=== PATIENT | female | born 1990 | race Caucasian/White ===

== ENCOUNTER 2016-09-14 15:10 | Emergency (ER) | payer OTHER, SELFPAY | END 2016-09-14 17:20 | disposition left against medical advice (07) | LOC: M ED 15:10 | DX: N93.9 Abnormal uterine and vaginal bleeding, unspecified (principal); Z53.29 Procedure and treatment not carried out because of patient's decision for other reasons ==

== ENCOUNTER 2016-10-27 18:25 | Emergency (ER) | payer MEDICAID, SELFPAY ==
[~2016-10-27] VITALS: Ht 165.1 cm; Wt 131.1 kg
[2016-10-27] MEDS ORDERED: NORCOTAB PO (20:33)
[2016-10-27 20:54] VITALS: BP 162/100
--- NOTE | 2016-10-28 08:06 | REP ---
Clinical: Trauma . Technique: Internal rotation, external rotation, and Y view left shoulder . Findings: No acute fracture or dislocation. The acromioclavicular and glenohumeral joints are intact. No periarticular calcifications or degenerative changes are appreciated. Sub acromial space is normal. Surrounding soft tissues are unremarkable. Impression: Normal left shoulder radiographs. Signed by Nate Hoskins MD 10/28/2016 07:57 A
== END 2016-10-27 20:58 | disposition home or self-care (01) ==
LOC: M ED 19:36
DX: S43.52XA Sprain of left acromioclavicular joint, initial encounter (principal); S40.012A Contusion of left shoulder, initial encounter; X58.XXXA Exposure to other specified factors, initial encounter; Y92.018 Other place in single-family (private) house as the place of occurrence of the external cause; Y93.89 Activity, other specified; Y99.8 Other external cause status

== ENCOUNTER 2016-12-09 13:44 | Emergency (ER) | payer MEDICAID, SELFPAY ==
[~2016-12-09] VITALS: Ht 165.1 cm; Wt 157.4 kg
[~2016-12-09 13:44] MED LIST: NORCOTAB PO
[2016-12-09 14:18] VITALS: BP 150/80
[2016-12-09] MEDS ORDERED: MACR100C3 PO (14:35)
== END 2016-12-09 14:42 | disposition home or self-care (01) ==
LOC: M ED 14:42
DX: O23.41 Unspecified infection of urinary tract in pregnancy, first trimester (principal); Z3A.00 Weeks of gestation of pregnancy not specified

== ENCOUNTER → 2016-12-15 | Outpatient (REF) | payer MEDICAID ==
[~2016-12-15] MED LIST changes: +MACR100C3 PO
[2016-12-15 14:40] LABS: MEAN CORPUSCULAR HEMOGLOBIN 29.8 pg (27.0-33.0); MEAN CORPUSCULAR HGB CONC 31.9 g/dl (32.0-36.5); MEAN CORPUSCULAR VOLUME 93.3 fl (80.0-96.0); RED CELL DISTRIBUTION WIDTH 13.8 % (11.5-14.5); WHITE BLOOD COUNT 8.8 K/mm3 (4.0-10.0)
[2016-12-15 15:08] LABS: HCG, SERUM QUANTITATIVE 7804 MIU/ML
[2016-12-16 10:41] LABS: HBsAg Prenatal NEGATIVE (NEGATIVE)
== END ==
LOC: M LAB REF 12:58
PROVIDERS: ATTEND Advanced Practice Midwife
DX: O36.80X0 Pregnancy with inconclusive fetal viability, not applicable or unspecified (principal); Z36 Encounter for antenatal screening of mother; Z3A.00 Weeks of gestation of pregnancy not specified; E66.01 Morbid (severe) obesity due to excess calories; O99.210 Obesity complicating pregnancy, unspecified trimester

== ENCOUNTER 2016-12-27 14:10 | Emergency (ER) | payer MEDICAID ==
[~2016-12-27] VITALS: Ht 162.6 cm; Wt 71.7 kg
[2016-12-27] MEDS ORDERED: ONDANSETRON 4 MG ORAL DISINTEGRATING TAB (S0181) PO ONE (14:45)
--- NOTE | 2016-12-27 15:49 | REP ---
Clinical: Dating and viability. Technique: Transabdominal first trimester obstetrical ultrasound with color Doppler evaluation. Findings: Single live early intrauterine is appreciated. Gestational sac with yolk sac and pole identified. [place]-rump length of 17 mm corresponds to 8 weeks 1 day gestational age with estimated date of delivery 08/07/2017. heart rate equals 160 beats per minute. No gross abnormalities are identified. Impression: Single live early intrauterine at 8 weeks 1 day gestational age. Complete anatomical assessment should be performed and 19-20 weeks. Signed by Nate Hoskins MD 12/27/2016 03:39 P
[2016-12-27] MEDS ORDERED: [UNRECOGNIZED DRUG - OTHER] PO (16:38)
[2016-12-27] MEDS ORDERED: REGL10TA6 PO (16:38)
[2016-12-27 16:47] VITALS: BP 123/60
== END 2016-12-27 16:49 | disposition home or self-care (01) ==
LOC: M ED 14:51
DX: R10.2 Pelvic and perineal pain (principal); O99.341 Other mental disorders complicating pregnancy, first trimester; F32.9 Major depressive disorder, single episode, unspecified; F41.9 Anxiety disorder, unspecified; Z3A.08 8 weeks gestation of pregnancy

== ENCOUNTER 2017-01-17 22:23 | Emergency (ER) | payer MEDICAID ==
[~2017-01-17] VITALS: Ht 160 cm; Wt 160.0 kg
[~2017-01-17 22:23] MED LIST changes: -MACR100C3 PO; +MACR100C43 PO; +REGL10TA6 PO; +[UNRECOGNIZED DRUG - OTHER] PO
[2017-01-18 00:41] VITALS: BP 130/75
--- NOTE | 2017-01-18 09:53 | REP ---
RIGHT ANKLE: Two views of the right ankle are performed. I see no acute fracture or dislocation. Ankle mortise is anatomic. There is soft tissue swelling. IMPRESSION: Soft tissue swelling without evidence of acute fracture or dislocation. Signed by Jeb Ann MD 01/18/2017 08:17 P
== END 2017-01-18 00:42 | disposition home or self-care (01) ==
LOC: M ED 23:35
DX: S93.401A Sprain of unspecified ligament of right ankle, initial encounter (principal); X50.9XXA Other and unspecified overexertion or strenuous movements or postures, initial encounter; Y92.019 Unspecified place in single-family (private) house as the place of occurrence of the external cause; Y93.89 Activity, other specified; Y99.9 Unspecified external cause status; F32.9 Major depressive disorder, single episode, unspecified

== ENCOUNTER 2017-01-22 09:59 | Emergency (ER) | payer MEDICAID ==
[~2017-01-22] VITALS: Ht 170.2 cm; Wt 157.1 kg
[2017-01-22] MEDS ORDERED: PYRI25TA3 PO (11:24)
[2017-01-22] MEDS ORDERED: ZOFR4TAB3 PO (11:24)
[2017-01-22] MEDS ORDERED: CVS25TAB16 PO (11:24)
[2017-01-22] MEDS ORDERED: ONDANSETRON 4 MG ORAL DISINTEGRATING TAB (S0181) PO ONE (11:30)
[2017-01-22 11:33] VITALS: BP 153/86
== END 2017-01-22 12:00 | disposition home or self-care (01) ==
LOC: M ED 11:56
DX: O21.9 Vomiting of pregnancy, unspecified (principal); Z3A.11 11 weeks gestation of pregnancy; O99.211 Obesity complicating pregnancy, first trimester

== ENCOUNTER → 2017-02-12 | Outpatient (REF) | payer MEDICAID ==
[~2017-02-12] MED LIST changes: +CVS25TAB16 PO; +PYRI25TA3 PO; +ZOFR4TAB3 PO
== END ==
LOC: M LAB REF 12:49
PROVIDERS: ATTEND Advanced Practice Midwife
DX: Z34.82 Encounter for supervision of other normal pregnancy, second trimester (principal)

== ENCOUNTER → 2017-04-19 | Outpatient (CLI) | payer MEDICAID ==
--- NOTE | 2017-04-19 13:18 | REP ---
Obstetric sonography: History: Supervision of for anatomy. Findings: Scanning through the gravid uterus demonstrates a viable single intrauterine gestation in a breech lie. motion is observed and heart rate is recorded at 153 beats per minute. An anterior grade 0 placenta is seen without evidence of previa or abruption. Amniotic fluid is subjectively normal. Closed cervical length is 5.4 cm. No extrauterine abnormalities observed. There has been appropriate interval growth. Exam quality is inhibited by patient body habitus and position. No anomaly is seen. face and profile, four-chamber heart with outflow tract views, and diaphragm and lower extremities are less than optimally seen due to lie and maternal body habitus. The following additional anatomic structures are identified and felt to be sonographically unremarkable: cranium, choroid plexus, cavum, cerebellum posterior fossa, lungs, left-sided stomach, abdominal wall cord insertion, three-vessel umbilical cord, kidneys and bladder, spine, upper extremities. Biometry chart: BPD 5.5 cm = 22 weeks 6 days Head circumference 21.9 cm = 24 weeks 0 days Abdominal circumference 19.5 cm = 24 weeks 2 days Femur length 4.4 cm = 24 weeks 3 days Humeral length 4.3 cm = 25 weeks 5 days Cerebellar diameter 2.6 cm = 23 weeks 5 days HC/AC ratio normal 1.12. Cephalic index normal 0.68 (0.70-0.86). Estimated weight 678 grams, 1 pound 7 ounces, 44th percentile for 24 weeks 2 days. Impression: Viable single intrauterine gestation at 23 weeks 6 days by today's composite sonographic criteria. Expected gestational age estimate based on prior sonography is 24 weeks 2 days KHADAR by prior sonography August 07, 2017. anatomic survey is less than complete as above. Signed by Rubens Flores MD 04/19/2017 04:29 P
== END ==
LOC: M SMT 08:12
PROVIDERS: ATTEND Advanced Practice Midwife
DX: Z36 Encounter for antenatal screening of mother (principal); Z3A.23 23 weeks gestation of pregnancy

== ENCOUNTER → 2017-05-07 | Outpatient (CLI) | payer MEDICAID ==
[2017-05-07 13:46] LABS: MEAN CORPUSCULAR HEMOGLOBIN 28.5 pg (27.0-33.0); MEAN CORPUSCULAR VOLUME 89.1 fl (80.0-96.0); RED CELL DISTRIBUTION WIDTH 14.7 % (11.5-14.5); WHITE BLOOD COUNT 13.4 10^3/uL (4.0-10.0)
== END ==
LOC: M SMT 11:05
PROVIDERS: ATTEND Obstetrics & Gynecology
DX: Z34.82 Encounter for supervision of other normal pregnancy, second trimester (principal)

== ENCOUNTER → 2017-05-17 | Outpatient (CLI) | payer MEDICAID ==
--- NOTE | 2017-05-17 16:16 | REP ---
FOLLOWUP OB ULTRASOUND: 05/17/2017. Comparison: Anatomy ultrasound 04/19/2017. Clinical history: Incomplete anatomy screening for multiple anatomic structures that could not be well defined on the previous exam in April. Based on her initial study, she would be 28 weeks 2 days with EDC 08/07/2017. This also was the LMP dating. Today's exam again shows a single intrauterine gestation currently in a breech position. Cervix is 5.1 cm long and closed. There is an anterior grade 0 placenta without previa or abruption. Visually the amniotic fluid volume is normal with an index of 13.6 and the normal range 9.3 - 22.9. Largest fluid pocket is 7.4 cm. Mid cord umbilical artery Doppler shows an S/D ratio of 2.39 with forward diastolic flow and Doppler resistive index of 0.60. biometry. BPD 6.9 cm = 27 weeks 5 day HC 26.6 cm = 29 weeks AC 24.5 cm = 28 weeks 5 days FL 5.5 cm = 29 weeks 1 day HL 4.7 cm = 27 weeks 5 days These give average ultrasound age of 28 weeks 3 days with EDC 08/06/2017. Estimated weight 1290 or 54th percentile based on initial ultrasound and LMP. This is normal interval growth. The anatomy screen today shows cranial vault, choroid plexus, lateral ventricles, cavum septum pellucidum, cerebellum and cisterna magna all intact. lungs are seen, however, the face and profile view, four-chamber heart view and the ventricular outflow tracts are still not well visualized due to the breech position and lie. Diaphragm and lower extremities are seen on today's study as is the left sided stomach bubble, three-vessel cord, cord insertion, transverse and longitudinal views of the spine, upper and lower extremities and the kidneys and bladder. Impression: 1. Single intrauterine gestation in breech position with normal interval growth, closed 5.1 cm long cervix, visually normal amniotic fluid volume and cord Doppler. 2. Anterior grade 0 placenta without previa or abruption. 3. Size and dates show normal interval growth. 4. Anatomy screen shows a heart rate 157, but the face and profile views as well as a four-chamber heart and ventricular outflow tracts are still not optimally seen due to the breech position. Study otherwise unremarkable. Signed by Shola Gore MD 05/17/2017 05:25 P
== END ==
LOC: M LRY 13:28
PROVIDERS: ATTEND Obstetrics & Gynecology
DX: Z36.2 Encounter for other antenatal screening follow-up (principal); Z3A.29 29 weeks gestation of pregnancy

== ENCOUNTER → 2017-05-24 | Outpatient (REF) | payer MEDICAID | LOC: M LAB REF 17:10 | PROVIDERS: ATTEND Advanced Practice Midwife | DX: Z34.83 Encounter for supervision of other normal pregnancy, third trimester (principal) ==

== ENCOUNTER → 2017-06-17 | Outpatient (REF) | payer OTHER | LOC: M SFHCLERA 14:26 | PROVIDERS: ATTEND Nurse Practitioner Family | DX: J02.9 Acute pharyngitis, unspecified (principal) ==

== ENCOUNTER 2017-06-26 22:16 | Outpatient (CLI) | payer MEDICAID, OTHER | END 2017-06-26 23:30 | disposition home or self-care (01) | LOC: M LDO 22:16 | PROVIDERS: ATTEND Advanced Practice Midwife | DX: O36.8130 Decreased fetal movements, third trimester, not applicable or unspecified (principal); O26.893 Other specified pregnancy related conditions, third trimester; O99.213 Obesity complicating pregnancy, third trimester; O99.343 Other mental disorders complicating pregnancy, third trimester; Z86.718 Personal history of other venous thrombosis and embolism; Z3A.34 34 weeks gestation of pregnancy; Z79.01 Long term (current) use of anticoagulants; Z79.899 Other long term (current) drug therapy ==

== ENCOUNTER → 2017-06-28 | Outpatient (CLI) | payer MEDICAID, OTHER | LOC: M LAB 08:25 | PROVIDERS: ATTEND Obstetrics & Gynecology | DX: Z34.82 Encounter for supervision of other normal pregnancy, second trimester (principal) ==

== ENCOUNTER → 2017-07-14 | Outpatient (REF) | payer MEDICAID, OTHER | LOC: M LAB REF 16:52 | PROVIDERS: ATTEND Obstetrics & Gynecology | DX: Z34.83 Encounter for supervision of other normal pregnancy, third trimester (principal) ==

== ENCOUNTER → 2017-07-16 | Outpatient (CLI) | payer MEDICAID | LOC: M RAD 14:04 | PROVIDERS: ATTEND Obstetrics & Gynecology | DX: Z36.2 Encounter for other antenatal screening follow-up (principal) ==

== ENCOUNTER 2017-07-27 06:35 | Inpatient (IN) | payer MEDICAID ==
[2017-07-27 08:47] LABS: MEAN CORPUSCULAR HEMOGLOBIN 27.3 pg (27.0-33.0); MEAN CORPUSCULAR HGB CONC 31.7 g/dl (32.0-36.5); PLATELET COUNT, AUTOMATED 358 10^3/uL (150-450); RED CELL DISTRIBUTION WIDTH 15.2 % (11.5-14.5); WHITE BLOOD COUNT 11.5 10^3/uL (4.0-10.0)
[2017-07-27 09:21] LABS: ALT/SGPT 7 U/L (12-78); AST/SGOT 8 U/L (7-37); BILIRUBIN,TOTAL 0.2 MG/DL (0.2-1.0); CREATININE FOR GFR 0.57 MG/DL (0.55-1.02); GLOMERULAR FILTRATION RATE > 60.0 (>60); URIC ACID 4.2 MG/DL (2.6-6.0)
[2017-07-27] MEDS: miSOPROStol 50 MCG 1/2 TAB (S0191) SL ×2 (09:31→14:12)
[2017-07-27] MEDS: PENICILLIN G POTASSIUM IV 5 MU in D5W MINI-BAG PLUS 100 ML IV (10:07)
[2017-07-27] MEDS: PENICILLIN G POTASSIUM IV 2.5 MU in APPROPRIATE DILUENT 1 EA IV ×2 (14:12→19:14)
[2017-07-27] MEDS: miSOPROStol 50 MCG 1/2 TAB (S0191) PO (23:38)
[2017-07-28] MEDS: PENICILLIN G POTASSIUM IV 2.5 MU in APPROPRIATE DILUENT 1 EA IV ×5 (00:41→16:42)
[2017-07-28] MEDS: PROMETHAZINE INJ 25 MG/ML VIAL (J2550) IV ×2 (02:02→09:15)
[2017-07-28] MEDS: BUTORPHANOL 2 MG/ML INJ (J0595) IV ×2 (02:05→09:15)
[2017-07-28] MEDS: miSOPROStol 50 MCG 1/2 TAB (S0191) PO ×2 (04:12→08:27)
[2017-07-28] MEDS: LR 1,000 ML IV ×3 (08:44→15:22)
[2017-07-28] MEDS: ONDANSETRON 4MG/2ML VIAL (J2405) IV (08:55)
[2017-07-28] MEDS ORDERED: LR 1,000 ML IV (11:32)
[2017-07-28] MEDS: OXYTOCIN DRIP 30 UNITS in APPROPRIATE DILUENT 1 EA IV ×2 (12:50→19:55)
[2017-07-28] MEDS ORDERED: FENTANYL 2MCG/ML ROPIVACAINE 0.2% IN 0.9% NACL 200ML IVBAG As Ordered (13:38)
[2017-07-28] MEDS: LACTATED RINGER'S 1000 ML IV (15:22)
[2017-07-28] MEDS ORDERED: EPIDURAL/PCA KEYS XX (15:30)
[2017-07-28] MEDS ORDERED: diphenhydrAMINE INJ 50MG/ML VIAL (J1200) IV (15:30)
[2017-07-28] MEDS: FENTANYL/ROPIVACAINE/NACL BAG 200 ML EPIDURAL (15:30)
[2017-07-28] MEDS ORDERED: REFRIGERATOR IV KEYS XX (15:30)
[2017-07-28] MEDS ORDERED: EPIDURAL COMMENT XX (15:30)
[2017-07-28] MEDS ORDERED: ePHEDrine SULFATE 25 MG/5 ML(5MG/ML) SYRINGE IV (15:30)
[2017-07-28] MEDS ORDERED: ONDANSETRON 4MG/2ML VIAL (J2405) IV (15:30)
[2017-07-28] MEDS ORDERED: NALOXONE INJ 0.4 MG/1 ML VIAL (J2310) IV (15:30)
[2017-07-28] MEDS: LIDOCAINE 1% MDV INJ 50 ML VIAL INFIL (19:30)
[2017-07-28 19:35] LABS: CORD GAS ABE A -9.5; CORD GAS HCO3 A 21.1 MEQ/L; CORD GAS O2 SAT A 50.1 %; CORD GAS PCO2 A 65.9 mmHg; CORD GAS PH A 7.124 UNITS; CORD GAS PO2 A 24.8 mmHg; CORD GAS TCO2 A 23.2 MEQ/L
[2017-07-28 19:36] LABS: CORD GAS ABE V -6.2; CORD GAS HCO3 V 20.2 MEQ/L; CORD GAS O2 SAT V 69.1 %; CORD GAS PCO2 V 43.1 mmHg; CORD GAS PH V 7.289 UNITS; CORD GAS PO2 V 30.5 mmHg; CORD GAS SBC V 18.8 MEQ/L; CORD GAS TCO2 V 21.5 MEQ/L
[2017-07-28] MEDS ORDERED: RHOGAM 300 MCG (1500 IU) INJ (J2790) IM (20:00)
[2017-07-28] MEDS ORDERED: DIBUCAINE 1% OINTMENT 30GM TOP (20:00)
[2017-07-28] MEDS ORDERED: MEASLES,MUMPS,RUBELLA VACCINE INJ (MMR-II) (90707) SC (20:00)
[2017-07-28] MEDS ORDERED: ANUSOL HC CREAM 30GM TOP (20:00)
[2017-07-28] MEDS: IBUPROFEN 800 MG TAB PO (22:31)
[2017-07-29] MEDS: ACETAMINOPHEN 500 MG TAB PO ×2 (06:20→18:49)
[2017-07-29] MEDS: PRENATAL VITAMINS CHEWABLE TABLET PO (08:48)
[2017-07-29] MEDS: IBUPROFEN 800 MG TAB PO (12:18)
[2017-07-29] MEDS: DOCUSATE SODIUM 100 MG CAP PO (20:24)
[2017-07-30] MEDS: IBUPROFEN 800 MG TAB PO (04:07)
[2017-07-30] MEDS: PRENATAL VITAMINS CHEWABLE TABLET PO (10:07)
== END 2017-07-30 11:28 | disposition home or self-care (01) | DRG 560 ==
LOC: M LDI 06:35 → M OBS 07-28 21:26
PROC: 3E0DXGC Introduction of Other Therapeutic Substance into Mouth and Pharynx, External Approach (ICD-10-PCS; principal; 2017-07-27)
PROC: 10907ZC Drainage of Amniotic Fluid, Therapeutic from Products of Conception, Via Natural or Artificial Opening (ICD-10-PCS; 2017-07-28)
PROC: 10E0XZZ Delivery of Products of Conception, External Approach (ICD-10-PCS; 2017-07-28)
PROC: 0HQ9XZZ Repair Perineum Skin, External Approach (ICD-10-PCS; 2017-07-28)
DX: O13.4 Gestational [pregnancy-induced] hypertension without significant proteinuria, complicating childbirth (principal); Z68.43 Body mass index [BMI] 50.0-59.9, adult; O24.429 Gestational diabetes mellitus in childbirth, unspecified control; O99.344 Other mental disorders complicating childbirth; E66.9 Obesity, unspecified; Z37.0 Single live birth; Z3A.38 38 weeks gestation of pregnancy; Z91.14 Patient's other noncompliance with medication regimen; F31.9 Bipolar disorder, unspecified; Z79.899 Other long term (current) drug therapy; O99.824 Streptococcus B carrier state complicating childbirth; O70.0 First degree perineal laceration during delivery; O99.214 Obesity complicating childbirth

== ENCOUNTER → 2017-09-10 | Outpatient (REF) | payer MEDICAID ==
[2017-09-10 18:35] LABS: HEMATOCRIT 39.3 % (36.0-47.0); HEMOGLOBIN 12.1 g/dl (12.0-16.0); MEAN CORPUSCULAR HEMOGLOBIN 26.8 pg (27.0-33.0); MEAN CORPUSCULAR HGB CONC 30.8 g/dl (32.0-36.5); MEAN CORPUSCULAR VOLUME 87.1 fl (80.0-96.0); PLATELET COUNT, AUTOMATED 360 10^3/uL (150-450); RED BLOOD COUNT 4.51 10^6/uL (4.00-5.40); RED CELL DISTRIBUTION WIDTH 15.7 % (11.5-14.5)
== END ==
LOC: M SFHCPLAZ 16:00
DX: J02.9 Acute pharyngitis, unspecified (principal)

== ENCOUNTER → 2017-09-10 | Outpatient (REF) | payer MEDICAID | LOC: M SFHCPLAZ 17:28 | DX: J02.9 Acute pharyngitis, unspecified (principal) ==

== ENCOUNTER 2017-09-12 23:05 | Emergency (ER) | payer MEDICAID, SELFPAY ==
[2017-09-13] MEDS: dexameTHASONE 20 MG/5 ML VIAL (J1100) IV ×2
[2017-09-13] MEDS: IPRATROPIUM 0.5MG/ALBUTEROL 2.5MG INH SOL UD 3ML (DUONEB)(J7620) NEB ×6 (00:35→00:53)
[2017-09-13 00:58] LABS: BASO # 0.1 10^3/uL (0.0-0.2); BASO % 0.5 % (0.0-1.0); EOS # 0.3 10^3/uL (0.0-0.50); EOS % 1.2 % (0.0-3.0); HEMATOCRIT 39.3 % (36.0-47.0); HEMOGLOBIN 12.1 g/dl (12.0-16.0); IMMATURE GRANULOCYTE % 0.9 % (0-3.0); LYMPH # 3.7 10^3/uL (1.5-6.5); LYMPH % 17.3 % (24.0-44.0); MEAN CORPUSCULAR HEMOGLOBIN 26.7 pg (27.0-33.0); MEAN CORPUSCULAR HGB CONC 30.8 g/dl (32.0-36.5); MEAN CORPUSCULAR VOLUME 86.6 fl (80.0-96.0); MONO # 1.2 10^3/uL (0.0-0.8); MONO % 5.8 % (0.0-5.0); NEUTROPHILS # 15.7 10^3/uL (1.8-7.7); NEUTROPHILS % 74.3 % (36.0-66.0); PLATELET COUNT, AUTOMATED 388 10^3/uL (150-450); RED BLOOD COUNT 4.54 10^6/uL (4.00-5.40); RED CELL DISTRIBUTION WIDTH 15.9 % (11.5-14.5); WHITE BLOOD COUNT 21.2 10^3/uL (4.0-10.0)
[2017-09-13 01:31] LABS: INFLUENZA A AMPLIFICATION NEGATIVE (NEGATIVE); INFLUENZA B AMPLIFICATION NEGATIVE (NEGATIVE); RSV AMPLIFICATION NEGATIVE (NEGATIVE)
[2017-09-13 01:37] LABS: ANION GAP 6 MEQ/L (8-16); BLOOD UREA NITROGEN 17 MG/DL (7-18); CALCIUM LEVEL 8.4 MG/DL (8.5-10.1); CARBON DIOXIDE LEVEL 27 MEQ/L (21-32); CHLORIDE LEVEL 109 MEQ/L (98-107); CREATININE FOR GFR 0.78 MG/DL (0.55-1.30); GLOMERULAR FILTRATION RATE > 60.0 (>60); GLUCOSE, FASTING 107 MG/DL (70-100); POTASSIUM SERUM 4.6 MEQ/L (3.5-5.1); SODIUM LEVEL 142 MEQ/L (136-145)
[2017-09-13] MEDS ORDERED: ISOVUE-370 76% 100ML VIAL (Q9967) As Ordered ×2 (01:49)
== END 2017-09-13 03:39 | disposition home or self-care (01) ==
LOC: M ED 23:05
DX: J06.9 Acute upper respiratory infection, unspecified (principal); B34.9 Viral infection, unspecified; J45.909 Unspecified asthma, uncomplicated; F31.9 Bipolar disorder, unspecified
CPT/HCPCS: J1100

== ENCOUNTER → 2017-09-15 | Outpatient (REF) | payer MEDICAID | LOC: M SFHCLERA 11:35 | DX: J02.9 Acute pharyngitis, unspecified (principal) ==

== ENCOUNTER 2017-10-08 15:37 | Emergency (ER) | payer MEDICAID ==
[2017-10-08] MEDS: ONDANSETRON 4 MG ORAL DISINTEGRATING TAB (S0181) PO (16:59)
[2017-10-08] MEDS: ACETAMINOPHEN 325 MG TAB PO (17:04)
[2017-10-08 17:39] LABS: INFLUENZA A AMPLIFICATION NEGATIVE (NEGATIVE); INFLUENZA B AMPLIFICATION NEGATIVE (NEGATIVE)
== END 2017-10-08 18:04 | disposition home or self-care (01) ==
LOC: M ED 15:37
DX: A08.4 Viral intestinal infection, unspecified (principal); E11.9 Type 2 diabetes mellitus without complications; J45.909 Unspecified asthma, uncomplicated; F41.9 Anxiety disorder, unspecified; F32.9 Major depressive disorder, single episode, unspecified; E28.2 Polycystic ovarian syndrome
CPT/HCPCS: 87502

== ENCOUNTER → 2017-12-30 | Outpatient (REF) | payer MEDICAID | LOC: M LAB REF 15:42 | DX: Z12.4 Encounter for screening for malignant neoplasm of cervix (principal) ==

== ENCOUNTER → 2018-01-26 | Outpatient (REF) | payer OTHER | LOC: M SFHCLERA 16:38 | DX: J35.1 Hypertrophy of tonsils (principal) ==

== ENCOUNTER 2018-01-27 13:03 | Emergency (ER) | payer MEDICAID, OTHER, SELFPAY ==
[2018-01-27] MEDS: MAGIC MOUTHWASH SUSPENSION BTL SSP (14:15)
== END 2018-01-27 14:45 | disposition home or self-care (01) ==
LOC: M ED 13:03
DX: J03.91 Acute recurrent tonsillitis, unspecified (principal); J45.909 Unspecified asthma, uncomplicated; E11.9 Type 2 diabetes mellitus without complications; E28.2 Polycystic ovarian syndrome; F41.9 Anxiety disorder, unspecified
CPT/HCPCS: 87880

== ENCOUNTER 2018-02-05 20:08 | Emergency (ER) | payer OTHER, MEDICAID ==
[2018-02-05 23:49] LABS: CONTROL LINE MONO INT CTR LINE PRESENT; MONO SCRN NEGATIVE (NEGATIVE)
[2018-02-06] MEDS: AMOXICILLIN 500 MG CAP PO (00:10)
== END 2018-02-06 00:26 | disposition home or self-care (01) ==
LOC: M ED 02-06 00:26
DX: J03.90 Acute tonsillitis, unspecified (principal); J45.909 Unspecified asthma, uncomplicated; E28.2 Polycystic ovarian syndrome; Z86.32 Personal history of gestational diabetes
CPT/HCPCS: 86308

== ENCOUNTER 2018-06-19 19:01 | Emergency (ER) | payer OTHER ==
[2018-06-19] MEDS: ONDANSETRON 4 MG ORAL DISINTEGRATING TAB (Q0162 PER 1MG) PO (19:31)
[2018-06-19 19:53] LABS: BASO % 0.4 % (0.0-1.0); EOS # 0.2 10^3/uL (0.0-0.50); EOS % 2.2 % (0.0-3.0); HEMATOCRIT 44.6 % (36.0-47.0); HEMOGLOBIN 13.9 g/dl (12.0-15.5); IMMATURE GRANULOCYTE % 0.2 % (0-3.0); LYMPH # 1.7 10^3/uL (1.5-4.5); LYMPH % 18.6 % (24.0-44.0); MEAN CORPUSCULAR HEMOGLOBIN 27.6 pg (27.0-33.0); MEAN CORPUSCULAR HGB CONC 31.2 g/dl (32.0-36.5); MEAN CORPUSCULAR VOLUME 88.5 fl (80.0-96.0); MONO # 0.8 10^3/uL (0.0-0.8); MONO % 8.6 % (0.0-5.0); NEUTROPHILS # 6.3 10^3/uL (1.8-7.7); PLATELET COUNT, AUTOMATED 359 10^3/uL (150-450); RED BLOOD COUNT 5.04 10^6/uL (4.00-5.40); WHITE BLOOD COUNT 9.1 10^3/uL (4.0-10.0)
[2018-06-19 19:56] LABS: KETONE, URINE AUTO RFX NEGATIVE (NEGATIVE); MUCUS, URINE RFX MODERATE (NEGATIVE); NITRITE, URINE AUTO RFX NEGATIVE (NEGATIVE); RBC, URINE AUTO RFX 7 /HPF (0-3); SPECIFIC GRAVITY UR AUTO RFX 1.026 (1.002-1.035); SQUAM EPITHELIAL CELL UR AURFX 8 /HPF (0-6)
[2018-06-19 20:07] LABS: LEUKOCYTE ESTERASE UR AUTO RFX 1+ (NEGATIVE); WBC, URINE AUTO RFX 46 /HPF (0-3)
[2018-06-19 20:21] LABS: CONTROL LINE HCG INT CTR LINE PRESENT; CONTROL LINE MONO INT CTR LINE PRESENT; HCG, SERUM QUALITATIVE NEGATIVE (NEGATIVE); MONO SCRN NEGATIVE (NEGATIVE)
[2018-06-19 20:27] LABS: ANION GAP 8 MEQ/L (8-16); BLOOD UREA NITROGEN 10 MG/DL (7-18); CALCIUM LEVEL 8.6 MG/DL (8.5-10.1); CARBON DIOXIDE LEVEL 27 MEQ/L (21-32); CHLORIDE LEVEL 104 MEQ/L (98-107); GLOMERULAR FILTRATION RATE > 60.0 (>60); GLUCOSE, FASTING 101 MG/DL (70-100); POTASSIUM SERUM 4.2 MEQ/L (3.5-5.1); SODIUM LEVEL 139 MEQ/L (136-145)
[2018-06-19] MEDS: NITROFURANTOIN (MACROBID) 100 MG CAP PO (21:10)
== END 2018-06-19 21:15 | disposition home or self-care (01) ==
LOC: M ED 19:01
DX: N30.90 Cystitis, unspecified without hematuria (principal); E28.2 Polycystic ovarian syndrome; Z87.891 Personal history of nicotine dependence
CPT/HCPCS: Q0162

== ENCOUNTER 2018-07-11 13:29 | Emergency (ER) | payer OTHER ==
[~2018-07-11] VITALS: Ht 167.6 cm; Wt 157.7 kg
[~2018-07-11 13:29] MED LIST changes: +ACET-683 PO; +AMOX500T PO; +AZIT-12 PO; +IBUP80TA PO; +MAGICMW MT; +MAPA500T2 PO; +OSEL75CA PO; +PRED10PA PO; +PROAAER10 INH; -PYRI25TA3 PO; +PYRI25TA4 PO; +TESS100C PO; +ZOFR4TAB14 PO; -ZOFR4TAB3 PO
[2018-07-11] MEDS ORDERED: KETOROLAC 30 MG/ML VIAL (J1885) IV ONE (14:00)
[2018-07-11] MEDS ORDERED: NS 1,000 ML IV ONE (14:00)
[2018-07-11] MEDS ORDERED: ONDANSETRON 4MG/2ML VIAL (J2405) IV ONE (14:00)
[2018-07-11 15:10] LABS: BASO % 0.3 % (0.0-1.0); EOS # 0.1 10^3/uL (0.0-0.50); EOS % 0.8 % (0.0-3.0); HEMATOCRIT 41.6 % (36.0-47.0); HEMOGLOBIN 13.2 g/dl (12.0-15.5); LYMPH # 1.4 10^3/uL (1.5-4.5); LYMPH % 10.2 % (24.0-44.0); MEAN CORPUSCULAR HEMOGLOBIN 27.6 pg (27.0-33.0); MEAN CORPUSCULAR HGB CONC 31.7 g/dl (32.0-36.5); MEAN CORPUSCULAR VOLUME 86.8 fl (80.0-96.0); MONO # 0.8 10^3/uL (0.0-0.8); MONO % 6.2 % (0.0-5.0); NEUTROPHILS # 11.1 10^3/uL (1.8-7.7); NEUTROPHILS % 82.2 % (36.0-66.0); PLATELET COUNT, AUTOMATED 334 10^3/uL (150-450); RED BLOOD COUNT 4.79 10^6/uL (4.00-5.40); WHITE BLOOD COUNT 13.5 10^3/uL (4.0-10.0)
[2018-07-11 15:30] LABS: HCG, SERUM QUALITATIVE NEGATIVE (NEGATIVE)
[2018-07-11 15:32] LABS: ALBUMIN 3.5 GM/DL (3.2-5.2); ALT/SGPT 20 U/L (12-78); BILIRUBIN,DIRECT < 0.1 MG/DL (0.0-0.2); BILIRUBIN,TOTAL 0.5 MG/DL (0.2-1.0); BLOOD UREA NITROGEN 9 MG/DL (7-18); CALCIUM LEVEL 8.6 MG/DL (8.5-10.1); CARBON DIOXIDE LEVEL 28 MEQ/L (21-32); CHLORIDE LEVEL 104 MEQ/L (98-107); CREATININE FOR GFR 0.76 MG/DL (0.55-1.30); GLOMERULAR FILTRATION RATE > 60.0 (>60); GLUCOSE, FASTING 79 MG/DL (70-100); LIPASE 92 U/L (73-393); POTASSIUM SERUM 3.9 MEQ/L (3.5-5.1); SODIUM LEVEL 137 MEQ/L (136-145); TOTAL PROTEIN 6.8 GM/DL (6.4-8.2)
[2018-07-11 16:34] LABS: MONO SCRN NEGATIVE (NEGATIVE)
[2018-07-11] MEDS ORDERED: ZOFR4TAB14 PO (16:51)
[2018-07-11 16:55] VITALS: BP 143/63
--- NOTE | 2018-07-11 16:55 | REP ---
CT abdomen and pelvis without IV or oral contrast: History: Abdomen pain, worse in the left flank. CT findings: Preliminary digital lsat instructor radiograph is unremarkable. Bowel gas pattern is normal. The lung bases are clear on axial CT images. The liver is normal in size homogeneous in texture. There is one 8 mm low density area in the right lobe consistent with a cyst. The spleen is mildly prominent measuring 14.6 cm in greatest transverse dimension. No adrenal lesion is seen. Gallbladder and the pancreas are unremarkable. Kidneys are morphologically intact. No hydronephrosis or intrarenal calculus is seen. There are scattered small bowel mesenteric lymph nodes, none pathologically enlarged. No retroperitoneal mass or adenopathy is observed. Normal appendix seen in the right lower quadrant. Small and large bowel loops are unremarkable in the abdomen and pelvis. No uterine or ovarian abnormality is seen. Urinary bladder is essentially empty but otherwise unremarkable. No abdominal wall defect is seen. No bony destructive lesion is appreciated. Impression: Mildly prominent spleen size. Otherwise negative CT study abdomen and pelvis. Normal appendix. Electronically Signed by Rubens Flores MD 07/11/2018 05:02 P
== END 2018-07-11 16:58 | disposition home or self-care (01) ==
LOC: M ED 13:29
DX: R10.9 Unspecified abdominal pain (principal)
CPT/HCPCS: 74176; 80048; 80076; 81001; 83690; 84703; 85025; 86308; 87086; 96361; 96374; 96375; 99284; J1885; J2405

== ENCOUNTER → 2018-07-11 | Outpatient (REF) | payer OTHER | LOC: M SFHCLERA 12:35 | DX: Z53.9 Procedure and treatment not carried out, unspecified reason (principal); R11.0 Nausea ==

== ENCOUNTER 2018-07-18 18:20 | Emergency (ER) | payer OTHER ==
[~2018-07-18] VITALS: Ht 165.1 cm; Wt 157.7 kg
[~2018-07-18 18:20] MED LIST changes: +MAPA500T17 PO; -MAPA500T2 PO
[2018-07-18] MEDS ORDERED: RANI150T (18:29)
[2018-07-18] MEDS ORDERED: ALBU83IN (18:29)
[2018-07-18] MEDS ORDERED: VENTAER (18:29)
[2018-07-18] MEDS ORDERED: AMOX/K (18:29)
--- NOTE | 2018-07-18 19:06 | REP ---
Chest two views HISTORY: Abdominal pain Comparison: 09/12/2017 The lungs are clear. The heart is normal in size. The pulmonary vasculature is normal in appearance. The bony structure is intact. IMPRESSION: No acute disease. Electronically Signed by Nasim Penaloza MD 07/18/2018 06:58 P
[2018-07-18 19:16] LABS: BASO # 0.1 10^3/uL (0.0-0.2); BASO % 0.7 % (0.0-1.0); EOS # 0.4 10^3/uL (0.0-0.50); EOS % 3.3 % (0.0-3.0); HEMATOCRIT 41.3 % (36.0-47.0); HEMOGLOBIN 12.9 g/dl (12.0-15.5); LYMPH # 2.8 10^3/uL (1.5-4.5); LYMPH % 26.2 % (24.0-44.0); MEAN CORPUSCULAR HEMOGLOBIN 26.8 pg (27.0-33.0); MEAN CORPUSCULAR HGB CONC 31.2 g/dl (32.0-36.5); MEAN CORPUSCULAR VOLUME 85.9 fl (80.0-96.0); MONO # 0.6 10^3/uL (0.0-0.8); NEUTROPHILS # 6.8 10^3/uL (1.8-7.7); NEUTROPHILS % 63.3 % (36.0-66.0); PLATELET COUNT, AUTOMATED 448 10^3/uL (150-450); RED BLOOD COUNT 4.81 10^6/uL (4.00-5.40); WHITE BLOOD COUNT 10.7 10^3/uL (4.0-10.0)
[2018-07-18 19:35] LABS: ALBUMIN 3.2 GM/DL (3.2-5.2); ALT/SGPT 31 U/L (12-78); AMYLASE 23 U/L (25-115); BILIRUBIN,DIRECT < 0.1 MG/DL (0.0-0.2); BILIRUBIN,TOTAL 0.2 MG/DL (0.2-1.0); BLOOD UREA NITROGEN 11 MG/DL (7-18); CALCIUM LEVEL 8.4 MG/DL (8.5-10.1); CARBON DIOXIDE LEVEL 28 MEQ/L (21-32); CHLORIDE LEVEL 107 MEQ/L (98-107); CREATININE FOR GFR 0.87 MG/DL (0.55-1.30); GLOMERULAR FILTRATION RATE > 60.0 (>60); GLUCOSE, FASTING 95 MG/DL (70-100); LIPASE 124 U/L (73-393); POTASSIUM SERUM 4.4 MEQ/L (3.5-5.1); SODIUM LEVEL 142 MEQ/L (136-145); TOTAL PROTEIN 6.9 GM/DL (6.4-8.2)
[2018-07-18] MEDS ORDERED: GI COCKTAIL 50ML BTL(HYOSCYAMINE/MAALOX/LIDOCAINE VISCOUS)(1:3:1) PO ONE (21:00)
[2018-07-18] MEDS ORDERED: BENZONATATE 100 MG CAP PO ONE (21:00)
[2018-07-18] MEDS ORDERED: ONDANSETRON 4MG/2ML VIAL (J2405) IV ONE (21:00)
[2018-07-18] MEDS ORDERED: IPRATROPIUM 0.5MG/ALBUTEROL 2.5MG INH SOL UD 3ML (DUONEB)(J7620) NEB ONE (21:00)
[2018-07-18] MEDS ORDERED: KETOROLAC 30 MG/ML VIAL (J1885) IV ONE (21:00)
[2018-07-18] MEDS ORDERED: ISOVUE-370 76% 100ML VIAL (Q9967) As Ordered ONE (21:04)
--- NOTE | 2018-07-18 23:45 | REPVR ---
EXAM: CT Abdomen and Pelvis With Contrast EXAM DATE/TIME: 07/18/2018 10:35 PM CLINICAL HISTORY: 28 years old, female; Pain; Abdominal pain; Localized; Lower; Additional info: Lower abd pain TECHNIQUE: Axial computed tomography images of the abdomen and pelvis with intravenous contrast. All CT scans at this facility use at least one of these dose optimization techniques: automated exposure control; mA and/or kV adjustment per patient size (includes targeted exams where dose is matched to clinical indication); or iterative reconstruction. Coronal and sagittal reformatted images were created and reviewed. CONTRAST: 100 ml of ISOVUE 370 administered intravenously. COMPARISON: CT ABD PELVIS W/O CONTRAST 07/11/2018 3:41 PM FINDINGS: Lower thorax: Unremarkable. ABDOMEN: Liver: 4 mm low density lesion in the hepatic dome on the right, too small to characterize. Gallbladder and bile ducts: No radiodense gallstones. No biliary ductal dilatation. Pancreas: Unremarkable. Spleen: Unremarkable. Adrenals: Unremarkable. Kidneys and ureters: No mass. No radiodense calculi. No hydronephrosis. Stomach and bowel: Non-dilated, fluid-filled, mildly hyperemic loops of small bowel, some of which appear mildly thickened. No obstruction. No pneumatosis. Appendix: Normal. PELVIS: Bladder: Unremarkable. Reproductive: Unremarkable. ABDOMEN and PELVIS: Intraperitoneal space: No free fluid. No organized fluid collection. No free air. Bones/joints: No acute osseous abnormality. Soft tissues: Unremarkable. Vasculature: Unremarkable. No aneurysm. Lymph nodes: Small mesenteric lymph nodes, likely reactive. No pathologically enlarged lymph nodes. IMPRESSION: 1. Non-dilated, fluid-filled, mildly hyperemic loops of small bowel, some of which appear mildly thickened. Mild gastroenteritis could produce this appearance. 2. Additional findings, as above. COMMENT: Consistent with the [place]'s Incidental Findings Committee Report (J Am Johnny Radiol 2010): Unless the patient's specific circumstances suggest otherwise, any liver lesion 0.5 cm or less, any cystic kidney lesion less than 1.0 cm, and/or any adrenal lesion 1.0 cm or less not otherwise characterized in this report as possessing suspicious or indeterminate imaging features is/are highly likely to be benign and do not require follow-up imaging or biopsy. Electronically signed by: Matty Lopes On 07/18/2018 23:44:47 PM
[2018-07-19] MEDS ORDERED: TESS100C PO (00:16)
[2018-07-19] MEDS ORDERED: ALBU83IN NEB (00:16)
[2018-07-19] MEDS ORDERED: PSEU1TAB3 PO (00:16)
[2018-07-19] MEDS ORDERED: CHERSYP3 PO (00:16)
[2018-07-19 00:22] VITALS: BP 132/81
== END 2018-07-19 00:24 | disposition home or self-care (01) ==
LOC: M ED 18:20
DX: J06.9 Acute upper respiratory infection, unspecified (principal); N94.6 Dysmenorrhea, unspecified; J45.909 Unspecified asthma, uncomplicated; E28.2 Polycystic ovarian syndrome
CPT/HCPCS: 71046; 74177; 80048; 80076; 81001; 81025; 82150; 83690; 85025; 96374; 96375; 99284; J1885; J2405; Q9967

== ENCOUNTER 2018-08-12 10:54 | Emergency (ER) | payer OTHER ==
[~2018-08-12] VITALS: Ht 167.6 cm; Wt 158.0 kg
[~2018-08-12 10:54] MED LIST changes: +ALBU83IN; +ALBU83IN NEB; +AMOX/K; +CHERSYP3 PO; -MAPA500T17 PO; +MAPA500T2 PO; +PSEU1TAB3 PO; +RANI150T; +VENTAER
[2018-08-12] MEDS ORDERED: PROBCAP14 PO (11:18)
[2018-08-12] MEDS ORDERED: IPRATROPIUM 0.5MG/ALBUTEROL 2.5MG INH SOL UD 3ML (DUONEB)(J7620) NEB ONE (11:30)
[2018-08-12] MEDS ORDERED: PRED20TA PO (13:13)
[2018-08-12 13:21] VITALS: BP 158/90
--- NOTE | 2018-08-12 13:40 | REP ---
CHEST PA AND LATERAL: 08/12/2018. COMPARISON: 07/18/2018, 09/12/2017. CLINICAL HISTORY: Cough and wheezing. FINDINGS: Two-view show the lung rice adequately inflated. The CP angles are sharply defined without effusion, lateral pleural thickening or apical scarring. There is no infiltrate or atelectasis. I see no significant peribronchial thickening or interstitial change. Heart, mediastinal and hilar contours are normal. The aorta is intact. The airway shows some mild subglottic stenosis of the cervical trachea on the frontal view only. The bony thorax is unremarkable. No free air. IMPRESSION: 1. 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 Electronically Signed by Shola Gore MD 08/12/2018 04:59 P
== END 2018-08-12 13:24 | disposition home or self-care (01) ==
LOC: M ED 10:54
DX: J45.901 Unspecified asthma with (acute) exacerbation (principal); J38.6 Stenosis of larynx; E11.9 Type 2 diabetes mellitus without complications; F33.9 Major depressive disorder, recurrent, unspecified; F41.9 Anxiety disorder, unspecified; E28.2 Polycystic ovarian syndrome

== ENCOUNTER 2018-08-16 07:19 | Emergency (ER) | payer OTHER ==
[~2018-08-16] VITALS: Ht 165.1 cm; Wt 157.7 kg
[~2018-08-16 07:19] MED LIST changes: +PRED20TA PO; +PROBCAP14 PO
[2018-08-16] MEDS ORDERED: ALBU83IN (07:25)
[2018-08-16] MEDS ORDERED: IPRATROPIUM 0.5MG/ALBUTEROL 2.5MG INH SOL UD 3ML (DUONEB)(J7620) NEB ONE (08:00)
[2018-08-16] MEDS ORDERED: BENZONATATE 100 MG CAP PO ONE (08:00)
[2018-08-16 08:40] LABS: INFLUENZA A AMPLIFICATION NEGATIVE (NEGATIVE); INFLUENZA B AMPLIFICATION NEGATIVE (NEGATIVE)
[2018-08-16] MEDS ORDERED: AFRI0.0511 (09:16)
[2018-08-16] MEDS ORDERED: PRED20TA PO (09:16)
[2018-08-16] MEDS ORDERED: BENZ200C70 PO (09:16)
[2018-08-16 09:21] VITALS: BP 134/92
== END 2018-08-16 09:32 | disposition home or self-care (01) ==
LOC: M ED 07:19
DX: J20.5 Acute bronchitis due to respiratory syncytial virus (principal); J45.909 Unspecified asthma, uncomplicated; Z87.891 Personal history of nicotine dependence; Z79.52 Long term (current) use of systemic steroids; Z79.899 Other long term (current) drug therapy

== ENCOUNTER 2018-09-10 20:29 | Emergency (ER) | payer OTHER ==
[~2018-09-10] VITALS: Ht 165.1 cm; Wt 159.6 kg
[~2018-09-10 20:29] MED LIST changes: +AFRI0.0511; +BENZ200C70 PO
[2018-09-10] MEDS ORDERED: RANI150T PO (20:48)
[2018-09-10] MEDS ORDERED: IBUP-1022 PO (23:37)
[2018-09-10 23:45] VITALS: BP 132/78
[2018-09-10] MEDS ORDERED: KETOROLAC 60 MG/2 ML VIAL (J1885) IM ONE (23:45)
--- NOTE | 2018-09-10 23:58 | REPVR ---
EXAM: US Duplex Right Lower Extremity Veins, Limited EXAM DATE/TIME: 09/10/2018 11:25 PM CLINICAL HISTORY: 28 years old, female; Pain; Leg, upper; Right; Additional info: Right leg pain, HX of dvt TECHNIQUE: Real-time Duplex ultrasound of the Right Lower Extremity with 2-D machuca scale, color Doppler flow and spectral waveform analysis. Limited exam was focused on the right lower extremity veins. COMPARISON: No relevant prior studies available. FINDINGS: Right deep veins: Unremarkable. The common femoral, femoral, proximal profunda femoral and popliteal veins are patent without thrombus. Normal Doppler waveforms. Normal compressibility and/or augmentation response. Right superficial veins: Unremarkable. Saphenofemoral junction is patent without thrombus. Soft tissues: Unremarkable. IMPRESSION: No sonographic evidence of deep vein thrombosis. Electronically signed by: Matty Lopes On 09/10/2018 23:57:47 PM
== END 2018-09-10 23:52 | disposition home or self-care (01) ==
LOC: M ED 20:29
DX: S86.891A Other injury of other muscle(s) and tendon(s) at lower leg level, right leg, initial encounter (principal); X58.XXXA Exposure to other specified factors, initial encounter; Y92.89 Other specified places as the place of occurrence of the external cause; Z87.891 Personal history of nicotine dependence; Z79.899 Other long term (current) drug therapy
CPT/HCPCS: 93971; 96372; 99283; J1885

== ENCOUNTER → 2018-09-13 | Outpatient (REF) | payer OTHER, MEDICAID ==
[~2018-09-13] MED LIST changes: +IBUP-1022 PO; +RANI150T PO
== END ==
LOC: M SFHCLERA 13:39
PROVIDERS: ATTEND Nurse Practitioner Family
DX: L03.011 Cellulitis of right finger (principal)

== ENCOUNTER 2018-09-20 20:22 | Emergency (ER) | payer MEDICAID, OTHER ==
[~2018-09-20] VITALS: Ht 165.1 cm; Wt 157.7 kg
[2018-09-20 21:23] LABS: INFLUENZA A AMPLIFICATION NEGATIVE (NEGATIVE); INFLUENZA B AMPLIFICATION NEGATIVE (NEGATIVE)
[2018-09-20 21:55] VITALS: BP 172/98
[2018-09-20] MEDS ORDERED: OSELTAMIVIR PHOSPHATE 75 MG CAP (TAMIFLU) PO ONE (22:15)
[2018-09-20] MEDS ORDERED: OSEL75CA PO (22:16)
== END 2018-09-20 22:35 | disposition home or self-care (01) ==
LOC: M ED 20:22
DX: J06.9 Acute upper respiratory infection, unspecified (principal); Z20.828 Contact with and (suspected) exposure to other viral communicable diseases; K21.9 Gastro-esophageal reflux disease without esophagitis; Z87.891 Personal history of nicotine dependence; Z79.899 Other long term (current) drug therapy

== ENCOUNTER 2018-09-27 10:38 | Emergency (ER) | payer OTHER ==
[~2018-09-27] VITALS: Ht 165.1 cm; Wt 159.1 kg
[2018-09-27] MEDS ORDERED: ONDANSETRON 4MG/2ML VIAL (J2405) IV ONE (11:45)
[2018-09-27] MEDS ORDERED: DICYCLOMINE 10 MG CAP PO ONE (11:45)
[2018-09-27] MEDS ORDERED: KETOROLAC 30 MG/ML VIAL (J1885) IV ONE (11:45)
[2018-09-27] MEDS ORDERED: NS 1,000 ML IV ONE (11:45)
[2018-09-27] MEDS: GASTROGRAFIN SOLUTION 30ML PO SCH ×2 (12:26→12:45)
[2018-09-27 12:34] LABS: BASO # 0.1 10^3/uL (0.0-0.2); BASO % 0.6 % (0.0-1.0); EOS # 0.2 10^3/uL (0.0-0.50); EOS % 2.1 % (0.0-3.0); HEMOGLOBIN 13.5 g/dl (12.0-15.5); LYMPH # 1.5 10^3/uL (1.5-4.5); LYMPH % 17.4 % (24.0-44.0); MEAN CORPUSCULAR HEMOGLOBIN 26.9 pg (27.0-33.0); MEAN CORPUSCULAR HGB CONC 31.4 g/dl (32.0-36.5); MEAN CORPUSCULAR VOLUME 85.8 fl (80.0-96.0); MONO # 0.7 10^3/uL (0.0-0.8); MONO % 7.8 % (0.0-5.0); NEUTROPHILS # 6.2 10^3/uL (1.8-7.7); NEUTROPHILS % 71.9 % (36.0-66.0); PLATELET COUNT, AUTOMATED 362 10^3/uL (150-450); RED BLOOD COUNT 5.01 10^6/uL (4.00-5.40); WHITE BLOOD COUNT 8.7 10^3/uL (4.0-10.0)
[2018-09-27 12:41] LABS: APPEARANCE, URINE HAZY (CLEAR); BACTERIA, URINE AUTO 1+ (NEGATIVE); BILIRUBIN, URINE AUTO NEGATIVE (NEGATIVE); BLOOD, URINE BLOOD 1+ (NEGATIVE); COLOR, URINE YELLOW (YELLOW); GLUCOSE, URINE (UA) AUTO NEGATIVE (NEGATIVE); KETONE, URINE AUTO NEGATIVE (NEGATIVE); LEUKOCYTE ESTERASE, URINE AUTO 1+ (NEGATIVE); MUCUS, URINE SMALL (NEGATIVE); NITRITE, URINE AUTO NEGATIVE (NEGATIVE); PROTEIN, URINE AUTO NEGATIVE (NEGATIVE); RBC, URINE AUTO 4 /HPF (0-3); SPECIFIC GRAVITY URINE AUTO 1.014 (1.002-1.035); SQUAMOUS EPITHELIAL CELL UR AU 3 /HPF (0-6); UROBILINOGEN, URINE AUTO 0.2 mg/dL (0.0-2.0); WBC, URINE AUTO 4 /HPF (0-3)
[2018-09-27 13:01] LABS: URINE PREG TEST NEGATIVE (NEGATIVE)
[2018-09-27 13:15] LABS: ALBUMIN 3.5 GM/DL (3.2-5.2); ALT/SGPT 25 U/L (12-78); BILIRUBIN,TOTAL 0.4 MG/DL (0.2-1.0); BLOOD UREA NITROGEN 10 MG/DL (7-18); CALCIUM LEVEL 8.5 MG/DL (8.5-10.1); CARBON DIOXIDE LEVEL 23 MEQ/L (21-32); CHLORIDE LEVEL 107 MEQ/L (98-107); CREATININE FOR GFR 0.68 MG/DL (0.55-1.30); GLOMERULAR FILTRATION RATE > 60.0 (>60); GLUCOSE, FASTING 83 MG/DL (70-100); LIPASE 89 U/L (73-393); POTASSIUM SERUM 4.4 MEQ/L (3.5-5.1); SODIUM LEVEL 139 MEQ/L (136-145); TOTAL PROTEIN 7.2 GM/DL (6.4-8.2)
[2018-09-27] MEDS ORDERED: ISOVUE-370 76% 100ML VIAL (Q9967) As Ordered ONE (13:47)
--- NOTE | 2018-09-27 14:29 | REP ---
Clinical: Left-sided abdominal pain with nausea and diarrhea. Technique: Axial contrast enhanced images from the lung bases to the pubic symphysis using oral (per protocol) and 100 ml Isovue 370 intravenous contrast material with coronal and sagittal re-formations. Comparison: 07/18/2018. Findings: The liver, spleen, pancreas, gallbladder, bilateral adrenal glands and kidneys are normal. The enteric system is without obstruction or acute inflammatory process. Normal terminal ileum and appendix are identified in the right lower quadrant. No significant diverticulosis. Pelvis demonstrates normal bladder and age-appropriate uterus/adnexa. No ascites. No free air. No adenopathy. Abdominal aorta without aneurysm or dissection. Musculoskeletal structures without focal osseous abnormality. Lung bases are clear. Impression: Normal CT of the abdomen and pelvis. No acute abdominopelvic pathology appreciated. Electronically Signed by Nate Hoskins MD 09/27/2018 02:21 P
[2018-09-27] MEDS ORDERED: DICY20TA11 PO (14:55)
[2018-09-27] MEDS ORDERED: CIPR-249 PO (14:58)
[2018-09-27 15:19] VITALS: BP 136/84
== END 2018-09-27 15:29 | disposition home or self-care (01) ==
LOC: M ED 10:38
DX: N39.0 Urinary tract infection, site not specified (principal); R10.84 Generalized abdominal pain; R19.7 Diarrhea, unspecified; E11.9 Type 2 diabetes mellitus without complications; F41.9 Anxiety disorder, unspecified; F32.9 Major depressive disorder, single episode, unspecified; E28.2 Polycystic ovarian syndrome; Z86.718 Personal history of other venous thrombosis and embolism; Z87.891 Personal history of nicotine dependence; Z79.899 Other long term (current) drug therapy
CPT/HCPCS: 74177; 80053; 81001; 83690; 84703; 85025; 87507; 96374; 96375; 99284; J1885; J2405; Q9963; Q9967

== ENCOUNTER 2018-09-29 12:59 | Emergency (ER) | payer OTHER ==
[~2018-09-29] VITALS: Ht 165.1 cm; Wt 159.1 kg
[~2018-09-29 12:59] MED LIST changes: +CIPR-249 PO; +DICY20TA11 PO
[2018-09-29 13:00] VITALS: BP 144/83
== END 2018-09-29 16:02 | disposition left against medical advice (07) ==
LOC: M ED 12:59
DX: Z53.21 Procedure and treatment not carried out due to patient leaving prior to being seen by health care provider (principal)

== ENCOUNTER 2018-10-05 22:46 | Emergency (ER) | payer OTHER ==
[~2018-10-05] VITALS: Ht 165.1 cm; Wt 159.1 kg
[2018-10-05 22:47] VITALS: BP 178/68
[2018-10-06] MEDS ORDERED: VENTAER INH (00:29)
[2018-10-06] MEDS ORDERED: ALBU83IN NEB (00:29)
[2018-10-06] MEDS ORDERED: ALBUTEROL 90 MCG/ACT 8GM HFA INHALER INH ONE (00:30)
== END 2018-10-06 00:53 | disposition home or self-care (01) ==
LOC: M ED 22:46
DX: J45.901 Unspecified asthma with (acute) exacerbation (principal); J20.9 Acute bronchitis, unspecified; E11.9 Type 2 diabetes mellitus without complications; F31.9 Bipolar disorder, unspecified; E28.2 Polycystic ovarian syndrome; Z86.718 Personal history of other venous thrombosis and embolism; Z79.899 Other long term (current) drug therapy

== ENCOUNTER 2018-10-15 21:47 | Emergency (ER) | payer MEDICAID, OTHER ==
[~2018-10-15] VITALS: Ht 165.1 cm; Wt 159.1 kg
[~2018-10-15 21:47] MED LIST changes: +VENTAER INH
[2018-10-15] MEDS ORDERED: BENZ200C70 PO (22:27)
[2018-10-15] MEDS ORDERED: FLON1SPR NARES (22:27)
[2018-10-15] MEDS ORDERED: MUCI600T37 PO (22:27)
[2018-10-15] MEDS ORDERED: BENZONATATE 100 MG CAP PO ONE (22:30)
[2018-10-15 22:34] VITALS: BP 168/109
== END 2018-10-15 22:46 | disposition home or self-care (01) ==
LOC: M ED 21:47
DX: J06.9 Acute upper respiratory infection, unspecified (principal); Z87.891 Personal history of nicotine dependence; Z79.899 Other long term (current) drug therapy

== ENCOUNTER 2018-10-31 08:45 | Day surgery (SDC) | payer OTHER ==
[~2018-10-31] VITALS: Ht 165.1 cm; Wt 114.8 kg
[~2018-10-31 08:45] MED LIST changes: +FLON1SPR NARES; +HYDR-3715 PO; +LIDOCAINE 2% INJ 100 MG/5 ML SDV (FOR ANES.) As Ordered ONE; +MUCI600T37 PO; -NORCOTAB PO; +PROPOFOL 200 MG/20 ML VIAL As Ordered ONE
[2018-10-31] MEDS: NS 1,000 ML IV ONE (08:50)
--- NOTE | 2018-10-31 10:22 | ROOR ---
Patient Name: Renetta Marin Procedure Date: 10/31/2018 9:48 AM Date of : 1990 Age: 28 Room: [facility] Gender: Female Note Status: Finalized Procedure: Colonoscopy Indications: Abnormal CT of the GI tract Providers: Tre Herndon MD Referring MD: Ernie SAPP Requesting Provider: Medicines: Monitored Anesthesia Care Complications: No immediate complications. Procedure: Pre-Anesthesia Assessment: - Prior to the procedure, a History and Physical was performed, and patient medications and allergies were reviewed. The patient is competent. The risks and benefits of the procedure and the sedation options and risks were discussed with the patient. All questions were answered and informed consent was obtained. Patient identification and proposed procedure were verified by the physician, the nurse and the anesthesiologist in the pre-procedure area. Mental Status Examination: alert and oriented. Airway Examination: normal oropharyngeal airway and neck mobility. Respiratory Examination: clear to auscultation. CV Examination: normal. Prophylactic Antibiotics: The patient does not require prophylactic antibiotics. Prior Anticoagulants: The patient has taken no previous anticoagulant or antiplatelet agents. ASA Grade Assessment: III - A patient with severe systemic disease. After reviewing the risks and benefits, the patient was deemed in satisfactory condition to undergo the procedure. The anesthesia plan was to use monitored anesthesia care (MAC). Immediately prior to administration of medications, the patient was re-assessed for adequacy to receive sedatives. The heart rate, respiratory rate, oxygen saturations, blood pressure, adequacy of pulmonary ventilation, and response to care were monitored throughout the procedure. The physical status of the patient was re-assessed after the procedure. The Colonoscope was introduced through the anus and advanced to the terminal ileum, with identification of the appendiceal orifice and IC valve. The colonoscopy was performed without difficulty. The patient tolerated the procedure well. Findings: The perianal and digital rectal examinations were normal. The terminal ileum appeared normal. Normal mucosa was found in the entire colon. Biopsies for histology were taken with a cold forceps from the right colon, left colon and rectosigmoid colon for evaluation of microscopic colitis. Verification of patient identification for the specimen was done by the physician and nurse using the patient's name, date and medical record number. Estimated blood loss was minimal. Non-bleeding external and internal hemorrhoids were found during retroflexion. The hemorrhoids were small. Impression: - The examined portion of the ileum was normal. - Normal mucosa in the entire examined colon. Biopsied. - Non-bleeding external and internal hemorrhoids. Recommendation: - Patient has a contact number available for emergencies. The signs and symptoms of potential delayed complications were discussed with the patient. Return to normal activities tomorrow. Written discharge instructions were provided to the patient. - High fiber diet. - Continue present medications. - Await pathology results. - Repeat colonoscopy at age 48 for screening purposes. - Based on the biopsy results you will receive a phone call from GI clinic in 2-3 weeks to review the pathology results AND/OR your results will be faxed to your Primary care physician. - Return to primary care physician. Tre Herndon MD Tre Herndon MD 10/31/2018 10:21:32 AM Electronically signed by Tre Herndon MD Number of Addenda: 0 Note Initiated On: 10/31/2018 9:48 AM Estimated Blood Loss: Estimated blood loss was minimal.
--- NOTE | 2018-10-31 10:26 | ROOR ---
Patient Name: Renetta Marin Procedure Date: 10/31/2018 9:47 AM Date of : 1990 Age: 28 Room: [facility] Gender: Female Note Status: Finalized Procedure: Upper GI endoscopy Indications: Dyspepsia, Heartburn Providers: Tre Herndon MD Referring MD: Ernie SAPP Requesting Provider: Medicines: Monitored Anesthesia Care Complications: No immediate complications. Procedure: Pre-Anesthesia Assessment: - Prior to the procedure, a History and Physical was performed, and patient medications and allergies were reviewed. The patient is competent. The risks and benefits of the procedure and the sedation options and risks were discussed with the patient. All questions were answered and informed consent was obtained. Patient identification and proposed procedure were verified by the physician, the nurse and the anesthesiologist in the procedure room. Mental Status Examination: alert and oriented. Airway Examination: normal oropharyngeal airway and neck mobility. Respiratory Examination: clear to auscultation. CV Examination: normal. Prophylactic Antibiotics: The patient does not require prophylactic antibiotics. Prior Anticoagulants: The patient has taken no previous anticoagulant or antiplatelet agents. ASA Grade Assessment: III - A patient with severe systemic disease. After reviewing the risks and benefits, the patient was deemed in satisfactory condition to undergo the procedure. The anesthesia plan was to use monitored anesthesia care (MAC). Immediately prior to administration of medications, the patient was re-assessed for adequacy to receive sedatives. The heart rate, respiratory rate, oxygen saturations, blood pressure, adequacy of pulmonary ventilation, and response to care were monitored throughout the procedure. The physical status of the patient was re-assessed after the procedure. The Endoscope was introduced through the mouth, and advanced to the second part of duodenum. The upper GI endoscopy was accomplished without difficulty. The patient tolerated the procedure well. Findings: The Z-line was regular and was found 40 cm from the incisors. The examined esophagus was normal. Patchy minimal inflammation characterized by erythema and granularity was found in the gastric antrum. Biopsies were taken with a cold forceps for Helicobacter pylori testing. Verification of patient identification for the specimen was done by the physician and nurse using the patient's name, date and medical record number. The duodenal bulb and second portion of the duodenum were normal. Biopsies for histology were taken with a cold forceps for evaluation of celiac disease. Impression: - Z-line regular, 40 cm from the incisors. - Normal esophagus. - Gastritis. Biopsied. - Normal duodenal bulb and second portion of the duodenum. Biopsied. Recommendation: - Patient has a contact number available for emergencies. The signs and symptoms of potential delayed complications were discussed with the patient. Return to normal activities tomorrow. Written discharge instructions were provided to the patient. - Resume previous diet. - Continue present medications. - Await pathology results. - Based on the biopsy results you will receive a phone call from GI clinic in 2-3 weeks to review the pathology results AND/OR your results will be faxed to your Primary care physician. - Return to primary care physician. Tre Herndon MD Tre Herndon MD 10/31/2018 10:26:06 AM Electronically signed by Tre Herndon MD Number of Addenda: 0 Note Initiated On: 10/31/2018 9:47 AM Estimated Blood Loss: Estimated blood loss was minimal.
[2018-10-31 10:40] VITALS: BP 134/90
== END 2018-10-31 11:19 | disposition home or self-care (01) ==
LOC: M OPP 08:45
PROVIDERS: ATTEND Internal Medicine Gastroenterology
DX: K64.8 Other hemorrhoids (principal); R93.3 Abnormal findings on diagnostic imaging of other parts of digestive tract; R12 Heartburn; R10.13 Epigastric pain; K29.70 Gastritis, unspecified, without bleeding

== ENCOUNTER 2018-12-04 18:46 | Emergency (ER) | payer OTHER ==
[~2018-12-04] VITALS: Ht 167.6 cm; Wt 165.0 kg
[~2018-12-04 18:46] MED LIST changes: -LIDOCAINE 2% INJ 100 MG/5 ML SDV (FOR ANES.) As Ordered ONE; -PROPOFOL 200 MG/20 ML VIAL As Ordered ONE
[2018-12-04] MEDS ORDERED: CYCLOBENZAPRINE 5MG TABLET PO ONE (19:45)
[2018-12-04] MEDS ORDERED: KETOROLAC 60 MG/2 ML VIAL (J1885) IM ONE (19:45)
[2018-12-04 20:41] VITALS: BP 142/85
--- NOTE | 2018-12-04 20:50 | REPVR ---
EXAM: CT Abdomen and Pelvis Without Contrast EXAM DATE/TIME: 12/04/2018 7:47 PM CLINICAL HISTORY: 28 years old, female; Abdominal pain; Flank; Left; Additional info: L flank pain TECHNIQUE: Imaging protocol: Axial computed tomography images of the abdomen and pelvis without contrast. Coronal and sagittal reformatted images were created and reviewed. Radiation optimization: All CT scans at this facility use at least one of these dose optimization techniques: automated exposure control; mA and/or kV adjustment per patient size (includes targeted exams where dose is matched to clinical indication); or iterative reconstruction. COMPARISON: CT ABD PELVIS W/O CONTRAST 07/11/2018 3:41 PM FINDINGS: ABDOMEN: Liver: Unremarkable. Gallbladder and bile ducts: No radiodense gallstones. No biliary ductal dilatation. Pancreas: Unremarkable. Spleen: Unremarkable. Adrenals: Unremarkable. Kidneys and ureters: No mass. No radiodense calculi. No hydronephrosis. Stomach and bowel: No bowel wall thickening. No obstruction. No pneumatosis. Appendix: Normal. PELVIS: Bladder: Decompressed urinary bladder, which limits evaluation for wall thickening. Reproductive: Unremarkable. ABDOMEN and PELVIS: Intraperitoneal space: No free fluid. No organized fluid collection. No free air. Bones/joints: No acute osseous abnormality. Soft tissues: Small, fat-containing umbilical hernia. Vasculature: Unremarkable. No aneurysm. Lymph nodes: No pathologically enlarged lymph nodes. IMPRESSION: 1. Limited noncontrast examination without CT evidence of acute intra-abdominal or pelvic pathology. 2. Additional findings, as above. Electronically signed by: Matty Lopes On 12/04/2018 20:49:58 PM
[2018-12-04] MEDS ORDERED: KETO10TAB PO (21:01)
[2018-12-04] MEDS ORDERED: CYCL5TAB PO (21:01)
[2018-12-04] MEDS ORDERED: CIPR-249 PO (21:01)
[2018-12-15] MEDS ORDERED: BACT800T5 PO (18:00)
== END 2018-12-04 21:17 | disposition home or self-care (01) ==
LOC: M ED 18:46
DX: N39.0 Urinary tract infection, site not specified (principal); E11.9 Type 2 diabetes mellitus without complications; J44.9 Chronic obstructive pulmonary disease, unspecified; J45.909 Unspecified asthma, uncomplicated; E28.2 Polycystic ovarian syndrome; F33.9 Major depressive disorder, recurrent, unspecified; F41.9 Anxiety disorder, unspecified
CPT/HCPCS: 74176; 81001; 87086; 96372; 99283; J1885

== ENCOUNTER 2019-01-27 12:34 | Emergency (ER) | payer OTHER ==
[~2019-01-27] VITALS: Ht 165.1 cm; Wt 163.6 kg
[~2019-01-27 12:34] MED LIST changes: +BACT800T5 PO; +CYCL5TAB PO; +KETO10TAB PO
[2019-01-27] MEDS ORDERED: METF750T OR (13:44)
[2019-01-27 14:52] VITALS: BP 140/92
== END 2019-01-27 14:54 | disposition home or self-care (01) ==
LOC: M ED 12:34
DX: R03.0 Elevated blood-pressure reading, without diagnosis of hypertension (principal); E28.2 Polycystic ovarian syndrome; R51 Headache; F17.200 Nicotine dependence, unspecified, uncomplicated; Z79.84 Long term (current) use of oral hypoglycemic drugs

== ENCOUNTER 2019-02-09 11:11 | Emergency (ER) | payer OTHER ==
[~2019-02-09] VITALS: Ht 165.1 cm; Wt 163.5 kg
[~2019-02-09 11:11] MED LIST changes: +METF750T OR
[2019-02-09] MEDS ORDERED: DICY20TA PO (12:09)
[2019-02-09] MEDS ORDERED: NS 1,000 ML IV ONE (12:30)
[2019-02-09] MEDS ORDERED: KETOROLAC 30 MG/ML VIAL (J1885) IV ONE (12:30)
[2019-02-09] MEDS ORDERED: ONDANSETRON 4MG/2ML VIAL (J2405) IV ONE (12:30)
[2019-02-09 12:53] LABS: BASO # 0.1 10^3/uL (0.0-0.2); BASO % 0.7 % (0.0-1.0); EOS # 0.2 10^3/uL (0.0-0.50); EOS % 1.2 % (0.0-3.0); HEMATOCRIT 43.3 % (36.0-47.0); HEMOGLOBIN 13.6 g/dl (12.0-15.5); LYMPH # 2.3 10^3/uL (1.5-4.5); LYMPH % 17.1 % (24.0-44.0); MEAN CORPUSCULAR HEMOGLOBIN 27.3 pg (27.0-33.0); MEAN CORPUSCULAR HGB CONC 31.4 g/dl (32.0-36.5); MEAN CORPUSCULAR VOLUME 86.8 fl (80.0-96.0); MONO % 7.4 % (0.0-5.0); NEUTROPHILS % 73.3 % (36.0-66.0); PLATELET COUNT, AUTOMATED 384 10^3/uL (150-450); RED BLOOD COUNT 4.99 10^6/uL (4.00-5.40); WHITE BLOOD COUNT 13.7 10^3/uL (4.0-10.0)
[2019-02-09 13:17] LABS: ALBUMIN 3.7 GM/DL (3.2-5.2); ALT/SGPT 25 U/L (12-78); BILIRUBIN,DIRECT < 0.1 MG/DL (0.0-0.2); BILIRUBIN,TOTAL 0.2 MG/DL (0.2-1.0); LIPASE 113 U/L (73-393); TOTAL PROTEIN 7.6 GM/DL (6.4-8.2)
--- NOTE | 2019-02-09 13:48 | REP ---
RENAL AND BLADDER ULTRASOUND: Real-time sonographic evaluation of kidneys performed. Kidneys are normal in size and echotexture. Right kidney measures 10.9 x 5.5 x 5.4 cm and left kidney 10.4 x 5.4 x 5.8 cm. There is no hydronephrosis bilaterally. This study is somewhat limited due to patient body habitus. No gross stone or mass is seen. Urinary bladder is mildly distended with no gross mass or calculus. There are bilateral ureteral jets in the urinary bladder with Doppler color evaluation. IMPRESSION: Essentially negative renal and bladder ultrasound. Electronically Signed by Jeb Ann MD 02/10/2019 03:01 P
[2019-02-09] MEDS ORDERED: cefTRIAXone SOD 1 GM in D5W MINI-BAG PLUS 50 ML IV ONE (14:45)
[2019-02-09] MEDS ORDERED: PYRI1TAB5 PO (15:08)
[2019-02-09] MEDS ORDERED: KEFL500C17 PO (15:08)
[2019-02-09] MEDS ORDERED: NAPR-837 PO (15:08)
[2019-02-09 15:15] VITALS: BP 132/89
== END 2019-02-09 15:31 | disposition home or self-care (01) ==
LOC: M ED 11:11
DX: N10 Acute pyelonephritis (principal); Z86.32 Personal history of gestational diabetes; Z86.718 Personal history of other venous thrombosis and embolism; J45.909 Unspecified asthma, uncomplicated; F41.9 Anxiety disorder, unspecified; F31.9 Bipolar disorder, unspecified; Z87.891 Personal history of nicotine dependence; Z77.098 Contact with and (suspected) exposure to other hazardous, chiefly nonmedicinal, chemicals; Z79.899 Other long term (current) drug therapy
CPT/HCPCS: 76775; 80047; 80076; 81001; 83605; 83690; 84702; 85025; 87088; 87186; 96365; 96375; 99284; J0696; J1885; J2405

== ENCOUNTER 2019-02-19 04:50 | Emergency (ER) | payer OTHER ==
[~2019-02-19] VITALS: Ht 165.1 cm; Wt 159.1 kg
[~2019-02-19 04:50] MED LIST changes: +DICY20TA PO; +KEFL500C17 PO; +NAPR-837 PO; +PYRI1TAB5 PO
[2019-02-19] MEDS ORDERED: AMOX500C PO (07:02)
[2019-02-19 07:22] VITALS: BP 133/77
== END 2019-02-19 07:30 | disposition home or self-care (01) ==
LOC: M ED 04:50
DX: H66.91 Otitis media, unspecified, right ear (principal); J06.9 Acute upper respiratory infection, unspecified; J45.909 Unspecified asthma, uncomplicated; E28.2 Polycystic ovarian syndrome; Z86.718 Personal history of other venous thrombosis and embolism; Z87.42 Personal history of other diseases of the female genital tract; Z77.098 Contact with and (suspected) exposure to other hazardous, chiefly nonmedicinal, chemicals; Z79.899 Other long term (current) drug therapy; Z79.2 Long term (current) use of antibiotics; Z79.84 Long term (current) use of oral hypoglycemic drugs

== ENCOUNTER 2019-06-11 20:06 | Emergency (ER) | payer MEDICAID, OTHER ==
[~2019-06-11] VITALS: Ht 165.1 cm; Wt 160.9 kg
[~2019-06-11 20:06] MED LIST changes: +AMOX500C PO; -METF750T OR; +METF750T36 OR
[2019-06-11] MEDS ORDERED: SERT50TA29 (20:17)
[2019-06-11] MEDS ORDERED: CLON0.5T8 (20:17)
[2019-06-11] MEDS ORDERED: HYDR-643 (20:17)
[2019-06-11] MEDS ORDERED: SERT25TA21 (20:17)
[2019-06-11] MEDS ORDERED: ALBUTEROL SULFATE 2.5 MG/0.5 ML INH NEB SOLN NEB ONE (21:00)
[2019-06-11 21:29] VITALS: BP 143/88
[2019-06-11] MEDS ORDERED: DOXY100C37 PO (22:35)
[2019-06-11] MEDS ORDERED: TESS100C PO (22:35)
[2019-06-11] MEDS ORDERED: ALBU83IN NEB (22:37)
== END 2019-06-11 22:42 | disposition home or self-care (01) ==
LOC: M ED 20:06
DX: H66.92 Otitis media, unspecified, left ear (principal); H92.03 Otalgia, bilateral; J30.9 Allergic rhinitis, unspecified; J06.9 Acute upper respiratory infection, unspecified; B34.9 Viral infection, unspecified; J01.90 Acute sinusitis, unspecified; J45.909 Unspecified asthma, uncomplicated; R07.0 Pain in throat; F31.9 Bipolar disorder, unspecified; Z79.899 Other long term (current) drug therapy; Z88.0 Allergy status to penicillin

== ENCOUNTER 2019-07-19 21:39 | Emergency (ER) | payer OTHER ==
[~2019-07-19] VITALS: Ht 165.1 cm; Wt 159.1 kg
[~2019-07-19 21:39] MED LIST changes: +CLON0.5T2; +DOXY100C37 PO; +HYDR-643; +SERT25TA21; +SERT50TA29
[2019-07-19 21:40] VITALS: BP 171/94
[2019-07-19] MEDS ORDERED: CLON0.5T2 PO (22:01)
[2019-07-19] MEDS ORDERED: SERT-141 PO (22:01)
[2019-07-19] MEDS ORDERED: CLAR500T PO (22:43)
[2019-07-19] MEDS ORDERED: CLARITHROMYCIN 250 MG TAB PO ONE (22:45)
== END 2019-07-19 23:02 | disposition home or self-care (01) ==
LOC: M ED 21:39
DX: J02.0 Streptococcal pharyngitis (principal); Z20.89 Contact with and (suspected) exposure to other communicable diseases; Z79.899 Other long term (current) drug therapy; Z88.0 Allergy status to penicillin

== ENCOUNTER 2019-07-31 20:13 | Emergency (ER) | payer OTHER ==
[~2019-07-31] VITALS: Ht 165.1 cm; Wt 159.1 kg
[~2019-07-31 20:13] MED LIST changes: +CLAR500T PO; +CLON0.5T2 PO; +SERT-141 PO
[2019-07-31] MEDS ORDERED: LIDOCAINE 5% (LIDODERM) PATCH TD ONE (22:15)
[2019-07-31] MEDS ORDERED: KETOROLAC 60 MG/2 ML VIAL (J1885) IM ONE (22:15)
[2019-07-31] MEDS ORDERED: METHOCARBAMOL 750 MG TAB PO ONE (22:15)
[2019-07-31] MEDS ORDERED: LIDO1PAD TOP (23:25)
[2019-07-31] MEDS ORDERED: NAPR-837 PO (23:25)
[2019-07-31] MEDS ORDERED: ROBA750T4 PO (23:25)
[2019-07-31 23:33] VITALS: BP 142/65
[2019-08-01] MEDS ORDERED: **NOTE PATIENT COMMENT** MISC XX ONE (10:15)
== END 2019-07-31 23:38 | disposition home or self-care (01) ==
LOC: M ED 20:13
DX: M54.5 Low back pain (principal); N93.9 Abnormal uterine and vaginal bleeding, unspecified; J45.909 Unspecified asthma, uncomplicated; E28.2 Polycystic ovarian syndrome; E66.01 Morbid (severe) obesity due to excess calories; Z79.899 Other long term (current) drug therapy; Z88.0 Allergy status to penicillin
CPT/HCPCS: 81001; 87088; 96372; 99283; J1885

== ENCOUNTER 2019-08-28 18:21 | Emergency (ER) | payer OTHER ==
[~2019-08-28] VITALS: Ht 165.1 cm; Wt 161.4 kg
[~2019-08-28 18:21] MED LIST changes: +LIDO1PAD TOP; +ROBA750T4 PO
[2019-08-28 19:13] VITALS: BP 149/96
[2019-08-28] MEDS ORDERED: SERT25TA21 (19:15)
[2019-08-28 19:25] LABS: HEMATOCRIT 43.6 % (36.0-47.0); HEMOGLOBIN 13.3 g/dl (12.0-15.5); MEAN CORPUSCULAR HEMOGLOBIN 27.1 pg (27.0-33.0); MEAN CORPUSCULAR HGB CONC 30.5 g/dl (32.0-36.5); MEAN CORPUSCULAR VOLUME 88.8 fl (80.0-96.0); PLATELET COUNT, AUTOMATED 336 10^3/uL (150-450); RED BLOOD COUNT 4.91 10^6/uL (4.00-5.40); WHITE BLOOD COUNT 10.7 10^3/uL (4.0-10.0)
[2019-08-28 19:54] LABS: HCG, SERUM QUALITATIVE NEGATIVE (NEGATIVE)
[2019-08-28 20:02] LABS: ACETAMINOPHEN LEVEL < 2.0 UG/ML (10.0-30.0); ALBUMIN 3.6 GM/DL (3.2-5.2); ALT/SGPT 25 U/L (12-78); BILIRUBIN,DIRECT < 0.1 MG/DL (0.0-0.2); BILIRUBIN,TOTAL 0.1 MG/DL (0.2-1.0); BLOOD UREA NITROGEN 15 MG/DL (7-18); CARBON DIOXIDE LEVEL 26 MEQ/L (21-32); CHLORIDE LEVEL 109 MEQ/L (98-107); CREATININE FOR GFR 1.05 MG/DL (0.55-1.30); ETHYL ALCOHOL (ETHANOL) < 0.003 % (0.000-0.010); GLOMERULAR FILTRATION RATE > 60.0 (>60); GLUCOSE, FASTING 120 MG/DL (70-100); POTASSIUM SERUM 3.8 MEQ/L (3.5-5.1); SALICYLATE LEVEL < 1.7 MG/DL (5.0-30.0); SODIUM LEVEL 142 MEQ/L (136-145); THYROID STIMULATING HORMONE 0.173 uIU/ML (0.358-3.740); TOTAL PROTEIN 7.2 GM/DL (6.4-8.2)
[2019-08-28 20:16] LABS: AMPHETAMINES LEVEL URINE NEGATIVE (NEGATIVE); BARBITURATES URINE NEGATIVE (NEGATIVE); BENZODIAZEPINES URINE NEGATIVE (NEGATIVE); CANNABINOIDS URINE NEGATIVE (NEGATIVE); COCAINE METABOLITE URINE NEGATIVE (NEGATIVE); METHADONE URINE NEGATIVE (NEGATIVE); OPIATES URINE NEGATIVE (NEGATIVE); PHENCYCLIDINE URINE NEGATIVE (NEGATIVE)
[2019-08-28] MEDS ORDERED: ALBU83IN INH (22:17)
[2019-08-28] MEDS ORDERED: ZOLO25TA PO (22:17)
[2019-08-28] MEDS ORDERED: ZOLO50TA PO (22:17)
[2019-08-28] MEDS ORDERED: CLON0.5T2 PO (22:17)
== END 2019-08-29 00:54 | disposition home or self-care (01) ==
LOC: M ED 18:21
DX: F43.0 Acute stress reaction (principal); F31.9 Bipolar disorder, unspecified; Z88.0 Allergy status to penicillin
CPT/HCPCS: 80048; 80076; 80307; 84443; 84703; 85027; 99284; G0480

== ENCOUNTER → 2019-09-08 | Outpatient (REF) | payer OTHER, MEDICAID ==
[~2019-09-08] MED LIST changes: +ALBU83IN INH; -CLAR500T PO; +CLAR500T97 PO; +ZOLO25TA PO; +ZOLO50TA PO
== END ==
LOC: M SFHCLERA 11:34
PROVIDERS: ATTEND Physician Assistant
DX: J02.9 Acute pharyngitis, unspecified (principal)

== ENCOUNTER 2019-10-02 19:33 | Emergency (ER) | payer MEDICAID, OTHER ==
[~2019-10-02] VITALS: Ht 165.1 cm; Wt 164.4 kg
[2019-10-02 20:24] VITALS: BP 160/78
[2019-10-02 20:36] LABS: INFLUENZA A AMPLIFICATION NEGATIVE (NEGATIVE); INFLUENZA B AMPLIFICATION NEGATIVE (NEGATIVE)
[2019-10-02] MEDS ORDERED: AZIT-12 PO (21:56)
[2019-10-02] MEDS ORDERED: AZITHROMYCIN 250 MG TAB PO ONE (22:00)
== END 2019-10-02 22:05 | disposition home or self-care (01) ==
LOC: M ED 19:33
DX: J01.90 Acute sinusitis, unspecified (principal); I10 Essential (primary) hypertension; Z86.718 Personal history of other venous thrombosis and embolism; F17.200 Nicotine dependence, unspecified, uncomplicated; Z79.899 Other long term (current) drug therapy; Z88.0 Allergy status to penicillin

== ENCOUNTER 2019-10-05 12:50 | Emergency (ER) | payer OTHER ==
[~2019-10-05] VITALS: Ht 165.1 cm; Wt 163.4 kg
[2019-10-05 13:45] VITALS: BP 152/69
== END 2019-10-05 13:46 | disposition home or self-care (01) ==
LOC: M ED 12:50
DX: H43.393 Other vitreous opacities, bilateral (principal); Z86.718 Personal history of other venous thrombosis and embolism; J45.909 Unspecified asthma, uncomplicated; G47.30 Sleep apnea, unspecified; K58.9 Irritable bowel syndrome, unspecified; E28.2 Polycystic ovarian syndrome; E11.9 Type 2 diabetes mellitus without complications; M54.9 Dorsalgia, unspecified; F41.9 Anxiety disorder, unspecified; F31.89 Other bipolar disorder; Z79.899 Other long term (current) drug therapy; Z88.0 Allergy status to penicillin

== ENCOUNTER 2019-10-10 13:05 | Emergency (ER) | payer OTHER ==
[~2019-10-10] VITALS: Ht 165.1 cm; Wt 164.0 kg
[2019-10-10 13:07] VITALS: BP 139/88
[2019-10-10] MEDS ORDERED: SERT25TA21 (13:19)
[2019-10-10] MEDS ORDERED: SERT50TA29 (13:19)
[2019-10-10] MEDS ORDERED: ONDA4TAB6 (13:19)
== END 2019-10-10 14:25 | disposition left against medical advice (07) ==
LOC: M ED 13:05
DX: Z53.21 Procedure and treatment not carried out due to patient leaving prior to being seen by health care provider (principal)

== ENCOUNTER 2019-10-10 18:20 | Emergency (ER) | payer OTHER ==
[~2019-10-10] VITALS: Ht 165.1 cm; Wt 164.3 kg
[~2019-10-10 18:20] MED LIST changes: +ONDA4TAB6
[2019-10-10] MEDS ORDERED: NS 1,000 ML IV ONE (19:30)
[2019-10-10] MEDS ORDERED: ONDANSETRON 4MG/2ML VIAL (J2405) IV ONE (20:00)
[2019-10-10] MEDS ORDERED: DICYCLOMINE 10 MG CAP PO ONE (20:00)
[2019-10-10] MEDS ORDERED: GI COCKTAIL 50ML BTL(HYOSCYAMINE/MAALOX/LIDOCAINE VISCOUS)(1:3:1) PO ONE (20:00)
[2019-10-10 20:26] LABS: BASO # 0.1 10^3/uL (0.0-0.2); BASO % 0.7 % (0.0-1.0); EOS # 0.2 10^3/uL (0.0-0.5); EOS % 1.6 % (0.0-3.0); HEMATOCRIT 40.3 % (36.0-47.0); HEMOGLOBIN 12.2 g/dl (12.0-15.5); LYMPH # 2.1 10^3/uL (1.5-5.0); LYMPH % 17.4 % (24.0-44.0); MEAN CORPUSCULAR HEMOGLOBIN 26.9 pg (27.0-33.0); MEAN CORPUSCULAR HGB CONC 30.3 g/dl (32.0-36.5); MONO # 0.9 10^3/uL (0.0-0.8); MONO % 7.2 % (0.0-5.0); NEUTROPHILS # 8.8 10^3/uL (1.5-8.5); NEUTROPHILS % 72.7 % (36.0-66.0); PLATELET COUNT, AUTOMATED 343 10^3/uL (150-450); RED BLOOD COUNT 4.53 10^6/uL (4.00-5.40); WHITE BLOOD COUNT 12.1 10^3/uL (4.0-10.0)
[2019-10-10 20:37] LABS: ALBUMIN 3.1 GM/DL (3.2-5.2); ALT/SGPT 25 U/L (12-78); BILIRUBIN,DIRECT < 0.1 MG/DL (0.0-0.2); BILIRUBIN,TOTAL 0.2 MG/DL (0.2-1.0); LIPASE 194 U/L (73-393); TOTAL PROTEIN 6.7 GM/DL (6.4-8.2)
[2019-10-10] MEDS ORDERED: ISOVUE-370 76% 100ML VIAL (Q9967) As Ordered ONE (21:21)
--- NOTE | 2019-10-10 22:31 | REPVR ---
PROCEDURE INFORMATION: Exam: CT Abdomen And Pelvis With Contrast Exam date and time: 10/10/2019 9:27 PM Age: 29 years old Clinical indication: Abdominal pain; Flank; Right; Additional info: R flank pain, nausea TECHNIQUE: Imaging protocol: Computed tomography of the abdomen and pelvis with intravenous contrast. Radiation optimization: All CT scans at this facility use at least one of these dose optimization techniques: automated exposure control; mA and/or kV adjustment per patient size (includes targeted exams where dose is matched to clinical indication); or iterative reconstruction. Contrast material: ISOVUE 370; Contrast volume: 100 ml; Contrast route: IV; COMPARISON: CT ABD/PEL W/IV ORAL CONTRAS 09/27/2018 1:45 PM FINDINGS: Liver: Normal. No mass. Gallbladder and bile ducts: Normal. No calcified stones. No ductal dilation. Pancreas: Normal. No ductal dilation. Spleen: Normal. No splenomegaly. Adrenals: Normal. No mass. Kidneys and ureters: Normal. No hydronephrosis. Stomach and bowel: Unremarkable. No obstruction. No mucosal thickening. Appendix: No evidence of appendicitis. Intraperitoneal space: Unremarkable. No free air. No significant fluid collection. Vasculature: Unremarkable. No abdominal aortic aneurysm. Lymph nodes: Unremarkable. No enlarged lymph nodes. Bladder: Unremarkable as visualized. Reproductive: Unremarkable as visualized. Bones/joints: Unremarkable. No acute fracture. Soft tissues: Unremarkable. IMPRESSION: No acute findings. Electronically signed by: Brady Ram On 10/10/2019 22:31:08 PM
[2019-10-10] MEDS ORDERED: KETOROLAC 30 MG/ML VIAL (J1885) IV ONE (22:45)
[2019-10-10 23:10] VITALS: BP 141/84
== END 2019-10-10 23:11 | disposition home or self-care (01) ==
LOC: M ED 18:20
DX: R10.9 Unspecified abdominal pain (principal); R11.0 Nausea; E11.9 Type 2 diabetes mellitus without complications; R51 Headache; J45.909 Unspecified asthma, uncomplicated; Z86.718 Personal history of other venous thrombosis and embolism; E28.2 Polycystic ovarian syndrome; F17.200 Nicotine dependence, unspecified, uncomplicated; Z79.899 Other long term (current) drug therapy; Z88.0 Allergy status to penicillin
CPT/HCPCS: 74177; 80047; 80076; 81001; 83690; 84702; 85025; 87086; 96361; 96374; 96375; 99284; J1885; J2405; Q9967

== ENCOUNTER → 2019-12-14 | Outpatient (CLI) | payer OTHER, MEDICAID ==
--- NOTE | 2019-12-14 17:15 | REP ---
ANKLE: REASON FOR EXAM: Pain after inversion injury earlier today. There are no priors for comparison. FINDINGS: No acute fracture or destructive osseous lesion. The mortise is intact. There is evidence of diffuse soft tissue swelling. Electronically Signed by Yousif Lopez DO 12/14/2019 05:37 P
== END ==
LOC: M LRY 16:28
PROVIDERS: ATTEND Physician Assistant
DX: S99.911A Unspecified injury of right ankle, initial encounter (principal); X58.XXXA Exposure to other specified factors, initial encounter; Y92.89 Other specified places as the place of occurrence of the external cause; Y93.9 Activity, unspecified; Y99.9 Unspecified external cause status

== ENCOUNTER → 2020-05-10 | Outpatient (REF) | payer OTHER, MEDICAID ==
[~2020-05-10] MED LIST changes: +CLON0.5T17 PO; +ONDA4TAB6 PO; +TRAZ-252 PO
== END ==
LOC: M LAB REF 09:48
PROVIDERS: ATTEND Nurse Practitioner Family
DX: R30.0 Dysuria (principal)

== ENCOUNTER 2020-05-17 13:20 | Emergency (ER) | payer OTHER ==
[~2020-05-17] VITALS: Ht 165.1 cm; Wt 166.4 kg
[~2020-05-17 13:20] MED LIST changes: -CLON0.5T17 PO; -ONDA4TAB6 PO; -TRAZ-252 PO
[2020-05-17] MEDS ORDERED: TRAZ-252 PO (13:36)
[2020-05-17] MEDS ORDERED: CLON0.5T17 PO (13:36)
[2020-05-17] MEDS ORDERED: NAPR-837 PO (14:55)
[2020-05-17 15:03] VITALS: BP 134/72
== END 2020-05-17 15:09 | disposition home or self-care (01) ==
LOC: M ED 13:20
DX: S73.101A Unspecified sprain of right hip, initial encounter (principal); S33.9XXA Sprain of unspecified parts of lumbar spine and pelvis, initial encounter; W01.0XXA Fall on same level from slipping, tripping and stumbling without subsequent striking against object, initial encounter; Y92.099 Unspecified place in other non-institutional residence as the place of occurrence of the external cause; Y93.9 Activity, unspecified; Y99.9 Unspecified external cause status; Z86.718 Personal history of other venous thrombosis and embolism; J45.909 Unspecified asthma, uncomplicated; G47.30 Sleep apnea, unspecified; K58.9 Irritable bowel syndrome, unspecified; E28.2 Polycystic ovarian syndrome; E11.9 Type 2 diabetes mellitus without complications; M54.9 Dorsalgia, unspecified; F41.9 Anxiety disorder, unspecified; F31.89 Other bipolar disorder; Z79.899 Other long term (current) drug therapy; Z88.0 Allergy status to penicillin

== ENCOUNTER 2020-05-21 22:10 | Emergency (ER) | payer OTHER ==
[~2020-05-21] VITALS: Ht 167.6 cm; Wt 167.4 kg
[~2020-05-21 22:10] MED LIST changes: +CLON0.5T17 PO; +TRAZ-252 PO
[2020-05-21 22:12] VITALS: BP 163/116
[2020-05-21] MEDS ORDERED: ONDA4TAB6 PO (23:44)
[2020-05-21] MEDS ORDERED: ONDANSETRON 4 MG ORAL DISINTEGRATING TAB PO ONE (23:45)
== END 2020-05-22 00:03 | disposition home or self-care (01) ==
LOC: M ED 22:10
DX: R10.9 Unspecified abdominal pain (principal); R11.0 Nausea; K58.9 Irritable bowel syndrome, unspecified; Z79.899 Other long term (current) drug therapy; Z88.0 Allergy status to penicillin
CPT/HCPCS: 99282; Q0162

== ENCOUNTER → 2021-12-08 | Outpatient (CLI) | payer OTHER, MEDICAID ==
[~2021-12-08] MED LIST changes: -DICY20TA PO; -DICY20TA11 PO; +DICY20TA20 PO; +DICY20TA3 PO; +DOXY-443 PO; -DOXY100C37 PO; +ONDA4TAB6 PO
== END ==
LOC: M PLALAB 09:47
PROVIDERS: ATTEND Advanced Practice Midwife
DX: N92.0 Excessive and frequent menstruation with regular cycle (principal)

== ENCOUNTER → 2021-12-08 | Outpatient (REF) | payer OTHER, MEDICAID | LOC: M PLALAB 09:01 | PROVIDERS: ATTEND Advanced Practice Midwife | DX: Z12.4 Encounter for screening for malignant neoplasm of cervix (principal) ==

== ENCOUNTER → 2023-05-07 | Outpatient (CLI) | payer OTHER ==
[~2023-05-07] MED LIST changes: +ALBU2.5V10; +ALBU2.5V10 INH; +ALBU2.5V10 NEB; -ALBU83IN; -ALBU83IN INH; -ALBU83IN NEB
== END ==
LOC: M PLALAB 10:09
PROVIDERS: ATTEND Advanced Practice Midwife
DX: E11.9 Type 2 diabetes mellitus without complications (principal); Z12.4 Encounter for screening for malignant neoplasm of cervix

== ENCOUNTER 2024-06-23 21:11 | Emergency (ER) | payer OTHER ==
[~2024-06-23] VITALS: Ht 165.1 cm; Wt 172.7 kg
[~2024-06-23 21:11] MED LIST changes: -CYCL5TAB PO; +CYCL5TAB4 PO; +DOXY-441 PO; -DOXY-443 PO; +ONDA-282; +ONDA-282 PO; -ONDA4TAB6; -ONDA4TAB6 PO
[2024-06-23 22:26] LABS: BASO # 0.1 10^3/uL (0.0-0.2); BASO % 0.7 % (0.0-1.0); EOS # 0.1 10^3/uL (0.0-0.5); EOS % 0.9 % (0.0-3.0); HEMATOCRIT 44.2 % (36.0-47.0); LYMPH # 2.8 10^3/uL (1.5-5.0); LYMPH % 20.2 % (24.0-44.0); MEAN CORPUSCULAR HEMOGLOBIN 26.7 pg (27.0-33.0); MEAN CORPUSCULAR HGB CONC 31.7 g/dl (32.0-36.5); MEAN CORPUSCULAR VOLUME 84.4 fl (80.0-96.0); MONO % 6.9 % (2.0-8.0); NEUTROPHILS # 9.8 10^3/uL (1.5-8.5); NEUTROPHILS % 71.1 % (36.0-66.0); PLATELET COUNT, AUTOMATED 365 10^3/uL (150-450); RED BLOOD COUNT 5.24 10^6/uL (4.00-5.40); WHITE BLOOD COUNT 13.8 10^3/uL (4.0-10.0)
[2024-06-23 22:52] LABS: ALBUMIN 3.8 G/DL (3.2-5.2); ALKALINE PHOSPHATASE 94 U/L (35-104); ALT/SGPT 40 U/L (7.0-40); AST/SGOT 22 U/L (<34); BILIRUBIN,TOTAL 0.5 MG/DL (0.3-1.2); BLOOD UREA NITROGEN 19 MG/DL (9-23); CALCIUM LEVEL 10.4 MG/DL (8.5-10.1); CARBON DIOXIDE LEVEL 27 MMOL/L (20-31); CHLORIDE LEVEL 104 MMOL/L (98-107); CREATININE FOR GFR 0.88 MG/DL (0.55-1.30); GLOMERULAR FILTRATION RATE > 60.0 (>60); GLUCOSE, FASTING 121 MG/DL (60-100); SODIUM LEVEL 140 MMOL/L (136-145); TOTAL PROTEIN 7.8 G/DL (5.7-8.2)
[2024-06-23 22:56] LABS: HCG, SERUM QUALITATIVE NEGATIVE (NEGATIVE)
[2024-06-23 23:00] LABS: HEPATITIS B SURFACE ANTIBODY NEGATIVE (POSITIVE)
[2024-06-23 23:13] LABS: HEPATITIS B SURFACE ANTIGEN NEGATIVE (NEGATIVE)
[2024-06-23 23:25] LABS: HIV 1&2 SCREEN NEGATIVE (NEGATIVE)
[2024-06-23 23:32] LABS: HEPATITIS C VIRUS ABY INDEX 0.17 INDEX (<0.8)
[2024-06-24] MEDS ORDERED: EMTRICITABINE/TENOFOVIR 200MG/300MG TABLET PO SCH
[2024-06-24] MEDS ORDERED: RALTEGRAVIR 400 MG TAB (ISENTRESS) PO SCH
[2024-06-24] MEDS ORDERED: EXPOSURE KIT-ADULT 7 DAY SUPPLY PO ONE (01:00)
[2024-06-24] MEDS ORDERED: EMTR1TAB16 PO (01:10)
[2024-06-24] MEDS ORDERED: RALT40TA PO (01:10)
[2024-06-24] MEDS ORDERED: DOXY100C82 PO (01:10)
[2024-06-24 01:38] LABS: APPEARANCE, URINE CLOUDY (CLEAR); BACTERIA, URINE AUTO NEGATIVE (NEGATIVE); BILIRUBIN, URINE AUTO NEGATIVE (NEGATIVE); BLOOD, URINE BLOOD NEGATIVE (NEGATIVE); COLOR, URINE AMBER (YELLOW); GLUCOSE, URINE (UA) AUTO NEGATIVE (NEGATIVE); KETONE, URINE AUTO TRACE mg/dL (NEGATIVE); LEUKOCYTE ESTERASE, URINE AUTO 2+ (NEGATIVE); MUCUS, URINE SMALL (NEGATIVE); NITRITE, URINE AUTO NEGATIVE (NEGATIVE); PROTEIN, URINE AUTO 1+ mg/dL (NEGATIVE); RBC, URINE AUTO 4 /HPF (0-3); SPECIFIC GRAVITY URINE AUTO 1.032 (1.002-1.035); SQUAMOUS EPITHELIAL CELL UR AU 22 /HPF (0-6); WBC, URINE AUTO 37 /HPF (0-3)
[2024-06-24] MEDS: DOXYCYCLINE HYCLATE 100MG TABLET PO ONE (02:07)
[2024-06-24] MEDS: AZITHROMYCIN 250MG TABLET PO ONE (02:07)
[2024-06-24] MEDS: cefTRIAXone SOD 1GM VIAL IM ONE (02:07)
[2024-06-24] MEDS: metroNIDAZOLE (FLAGYL) 500MG TABLET PO ONE (02:08)
[2024-06-24] MEDS: RALTEGRAVIR 400 MG TAB (ISENTRESS) PO ONE (02:08)
[2024-06-24] MEDS: EMTRICITABINE/TENOFOVIR 200MG/300MG TABLET PO ONE (02:08)
[2024-06-24] MEDS: ULIPRISTAL ACETATE 30MG TAB (ELLA) PO ONE (02:08)
[2024-06-24] MEDS: LIDOCAINE 1% SDV 5ML VIAL DILUENT ONE (02:08)
[2024-06-24] MEDS: ONDANSETRON 4MG ORAL DISINTEGRATING TAB PO ONE (02:14)
[2024-06-24 02:15] VITALS: BP 162/111; TEMP 97.6; O2SAT 96
[2024-06-24 02:32] LABS: Trichomonas vaginalis (AMP) NOT DETECTED (NEGATIVE)
[2024-06-24 02:56] LABS: GC DNA AMPLIFICATION NEGATIVE (NEGATIVE)
== END 2024-06-24 02:27 | disposition home or self-care (01) ==
LOC: M ED 21:11
DX: T74.21XA Adult sexual abuse, confirmed, initial encounter (principal); Y07.010 Husband, current, perpetrator of maltreatment and neglect; Y92.009 Unspecified place in unspecified non-institutional (private) residence as the place of occurrence of the external cause; Y99.9 Unspecified external cause status; F39 Unspecified mood [affective] disorder; F17.200 Nicotine dependence, unspecified, uncomplicated; Z79.899 Other long term (current) drug therapy; Z88.0 Allergy status to penicillin
CPT/HCPCS: 36415; 80053; 81001; 84703; 85025; 86706; 86780; 86803; 87340; 87389; 87661; 87810; 87850; 96372; 99284; J0696